=== PATIENT | male | born 1965 | race Caucasian/White ===

== ENCOUNTER → 2020-12-10 00:51 | Outpatient (CLI) | payer OTHER, SELFPAY ==
[2020-12-10 22:45] LABS: SARS-CoV-2 RNA PCR Negative
== END ==
PROVIDERS: PCP Family Medicine Adolescent Medicine; Visit Provider Internal Medicine Gastroenterology
DX: Z01.812 Encounter for preprocedural laboratory examination (principal); Z20.822 Contact with and (suspected) exposure to COVID-19
CPT/HCPCS: C9803; U0003; U0005

== ENCOUNTER 2020-12-13 01:44 | Day surgery (SDC) | payer OTHER, SELFPAY ==
[2020-12-05 13:59] VITALS: BMI 24.7
[2020-12-13 11:11] VITALS: BP 142/79; PULSE 93; RESP 16; TEMP 36.2; O2SAT 100
[2020-12-13] MEDS: LACTATED RINGERS 1,000 ML 150 ML IV CONT (11:15)
--- NOTE | 2020-12-13 11:48 | WPDANESEPPF ---
Anes - Initial Pre Proc Eval Procedure: Operation Date: 12/13/20 12:00 Proposed Procedures p Colonoscopy - Олег Temple MD Date/Time: 12/13/20 11:48 Surgeon: Олег Temple MD Pre Op Diagnosis: positive fit test R19.5 Patient Data Age: 55 Gender: M Height: 1.85 m Weight: 83.7 kg Last Vital Signs Temp 97.2 F L 12/13/20 11:11 Pulse 93 12/13/20 11:11 Resp 16 12/13/20 11:11 BP 142/79 H 12/13/20 11:11 Pulse Ox 100 12/13/20 11:11 Allergies Allergy/AdvReac Type Severity Reaction Status Date / Time Penicillins Allergy Mild Unknown Verified 12/13/20 11:09 Home Medications Medication Instructions Recorded Confirmed Type azathioprine [Imuran] 150 mg PO DAILY 12/05/20 12/05/20 History calcium carbonate-vitamin D3 500 cap PO DAILY 12/05/20 12/05/20 History [Calcium With Vitamin D3] ferrous sulfate [FeroSul] 325 mg PO DAILY 12/05/20 12/05/20 History folic acid 1 mg PO DAILY 12/05/20 12/05/20 History multivit with min-folic acid 1 tablet PO DAILY 12/05/20 12/13/20 History [Adult One Daily Multivitamin] Patient hx anesthesia problems: none Family hx anesthesia problems: none PMFSH Past Medical History Medical History (Updated 12/13/20 @ 11:43 by Rikki Alaniz MD) Anemia Crohn's disease Social History Social History Smoking status: Never smoker Alcohol intake: never Substance use type: does not use Living arrangements: with family Spiritual care concerns: No Anes - Eval Final PreProcedure Day of Procedure 12/13/20 11:48 Patient weight: normal Heart: regular rate and rhythm Lungs: clear to auscultation Airway: Mallampati scale class II Neurological: alert and oriented Last oral intake: >/= 8 hours ASA classification: II Emergent: no Anesthetic plan: proceed Anesthesia type and monitoring: general GIVS and standard monitoring Informed Consent: The patient's anesthetic plan and its attendant risks and benefits were discussed with the patient/family/POA. Questions were solicited and answers provided to the satisfaction of the patient/family/POA.
--- NOTE | 2020-12-13 11:55 | WPDGICN ---
Assessment and Plan Assessment and plan (1) Crohn's disease: Code(s): K50.90 - Crohn's disease, unspecified, without complications Status: Acute Assessment and Plan: Patient with known history of Crohn's disease. Previous endoscopy revealed rectal stricture as well. Patient currently maintained on Imuran 150mg p.o. daily. Plan is for evaluation at this time to assess status of his colonic Crohn's disease. (2) ASCHA (iron deficiency anemia): Code(s): D50.9 - Iron deficiency anemia, unspecified Status: Acute Assessment and Plan: Patient recently identified to have iron deficiency anemia. Stool Hemoccult was found to be positive. Plan to evaluate at the time of endoscopy. Iron replacement is encouraged in close monitoring of CBC. Pending results of colonoscopy we may need to consider EGD if no specific pathology identified. GI Consult Note Consult date/time: 12/13/20 11:55 HPI: Renaldo Leyva is a 55 year old male presents for colonoscopy. Recently found to have iron deficiency anemia. Hemoccult-positive stools. Patient's history is significant he was doing diagnosed with Crohn's disease in 2005. He has recently been treated with Imuran. Initial trial of mesalamine was initiated but he was found to be intolerant of mesalamine and colitis actually worsened on this medication. He did require brief trial of prednisone for some time initially. Colonoscopy in 2014 revealed a web-like stricture in the rectum. This had benign histology. patient reports that his current bowel habits are essentially normal. He denies any blood in his stools. Stool Hemoccult was found to be positive but stools do grossly appear normal. He presents today for follow-up exam. Review of Systems Review of Systems: All systems reviewed & are unremarkable except as noted in HPI and below PMFSH Past Medical History Medical History (Updated 12/13/20 @ 11:58 by Олег Temple MD) Anemia Crohn's disease Social History Social History Smoking status: Never smoker Alcohol intake: never Substance use type: does not use Living arrangements: with family Spiritual care concerns: No Meds Home Medications and Allergies Home Medications Medication Instructions Recorded Confirmed Type azathioprine [Imuran] 150 mg PO DAILY 12/05/20 12/05/20 History calcium carbonate-vitamin D3 500 cap PO DAILY 12/05/20 12/05/20 History [Calcium With Vitamin D3] ferrous sulfate [FeroSul] 325 mg PO DAILY 12/05/20 12/05/20 History folic acid 1 mg PO DAILY 12/05/20 12/05/20 History multivit with min-folic acid 1 tablet PO DAILY 12/05/20 12/13/20 History [Adult One Daily Multivitamin] Allergies Allergy/AdvReac Type Severity Reaction Status Date / Time Penicillins Allergy Mild Unknown Verified 12/13/20 11:09 Vital Signs Vital Signs - 24 hr 12/13/20 11:11 Temperature 97.2 F L Pulse Rate 93 Respiratory Rate 16 Blood Pressure 142/79 H Pulse Oximetry 100 Exam Narrative: Physical exam reveals patient be alert. Vital signs stable. HEENT exam unremarkable. Patient is anicteric. Lungs are clear to auscultation and percussion. Heart is without murmur or extra sounds. Abdominal exam bowel sounds are present soft nontender with no organomegaly. Digital external rectal exam is normal.
[2020-12-13 12:37] VITALS: BP 82/49; PULSE 75; RESP 17; O2SAT 94
[2020-12-13 12:47] VITALS: BP 102/69; PULSE 79; RESP 15; O2SAT 100
[2020-12-13 12:57] VITALS: BP 106/68; PULSE 79; RESP 17; O2SAT 100
[2020-12-13 13:22] LABS: Basophils Absolute Auto 0.1 K/mm3 (0.0-0.1); Basophils Percent Auto 1.2 % (0.2-1.2); Eosinophils Absolute Auto 0.2 K/mm3 (0-0.3); Eosinophils Percent Auto 3.2 % (0-4.4); Hematocrit 28.6 % (42.0-52.0); Immature Granulocyte Absolute 0.02 K/mm3 (0.00-0.031); Immature Granulocyte Percent A 0.4 % (0-0.5); Lymphocytes Percent Auto 16.2 % (18.3-44.2); Mean Corpuscular HGB Conc 31.5 g/dl (32-36); Mean Corpuscular Hemoglobin 25.4 pg (26-34); Mean Corpuscular Volume 80.6 fl (80-100); Mean Platelet Volume 9.6 fl (7.4-10.4); Monocytes Absolute Auto 0.6 K/mm3 (0.1-0.6); Neutrophils Absolute Auto 3.3 K/mm3 (1.3-6.7); Platelet Count Result 469 k/mm3 (150-375); Red Blood Count 3.55 M/mm3 (4.6-6.20); Red Cell Distribution Width 19.4 % (11.5-14.5); White Blood Count 4.9 K/mm3 (4.5-10.0)
== END 2020-12-13 13:25 | disposition home or self-care (01) ==
PROVIDERS: PCP Family Medicine Adolescent Medicine; Visit Provider Internal Medicine Gastroenterology
PROC: 0DJD8ZZ Inspection of Lower Intestinal Tract, Via Natural or Artificial Opening Endoscopic (ICD-10-PCS; CPT 45378; principal; 2020-12-13 12:00)
DX: D50.0 Iron deficiency anemia secondary to blood loss (chronic) (principal); R19.7 Diarrhea, unspecified; K50.90 Crohn's disease, unspecified, without complications; K63.5 Polyp of colon; K56.699 Other intestinal obstruction unspecified as to partial versus complete obstruction; K62.4 Stenosis of anus and rectum; K64.8 Other hemorrhoids
CPT/HCPCS: 45385; 45380; 36415; 85025; 88305; J2704; J7120

== ENCOUNTER 2021-03-15 09:42 | Outpatient (CLI) | payer OTHER, SELFPAY ==
--- NOTE | ~2021-03-15 | XR_ITS ---
EXAMINATION: XR_ENEMABAC_CR EXAM DATE: 03/15/2021 11:38 INDICATION: Incomplete colonoscopy. Anemia, sizable colonic polypoid mass identified on colonoscopy. History of inflammatory bowel disease. TECHNIQUE: Barium enema performed through tube inserted for the procedure. Barium air contrast enema was performed. Procedure was started in horizontal position, and attempts to do routine exam and put the table vertical unsuccessfully due to what was most likely patient demonstrating orthostatic hypo tension. Table was raised about 40 degrees and patient stated he felt dizzy and briefly unable to ans wer questions. Table was then returned to horizontal position and blood pressure was obtained at 90/4 0. Several minutes later blood pressure was 129/70 which patient stated was more normal for him. Afte r the procedure he was able to sit up on the table and ambulated to the bathroom without feeling dizz y. Dose reduction digital pulsed fluoroscopy was used at 4 frames per second with DAP 57 Gycm2, and a total number of 112 images for the exam. Fluoroscopy time of 0.5 minutes was used. Correlation was made with CT abdomen pelvis 2014. FINDINGS: The colon had diffuse absence of expected haustral folds. Region of mucosal abnormality al cesar the antimesenteric side of the descending colon with additional polypoid appearing filling defect confirmed on some of the images, has been indicated. This mass measures about 5 cm. Distal to this i n the transverse colon there is focal region of narrowing, which did not appear to have shouldering t o suggest underlying circumferential cancer. Contrast reflux into the terminal ileum, which demonstrated expected ileal fold pattern. Unusual kaitlynn nyla in that the cecum appeared to transition directly into the terminal ileum without expected cecal base anatomy, ileocecal valve appearance. IMPRESSION: 1. Polypoid descending colonic mass. 2. Transverse colonic narrowing without shouldering suspected. 3. Absent colonic haustral pattern consistent with inflammatory bowel disease. 4. Limited exam, patient became orthostatic during procedure. Reviewed, dictated and finalized at location A. E[employer] TENDER HELPER
== END 2021-03-15 09:43 | disposition home or self-care (01) ==
PROVIDERS: PCP Family Medicine Adolescent Medicine; Visit Provider Internal Medicine Gastroenterology
DX: D37.4 Neoplasm of uncertain behavior of colon (principal); K52.9 Noninfective gastroenteritis and colitis, unspecified
CPT/HCPCS: 74280

== ENCOUNTER 2023-05-21 09:08 | Inpatient (IN) | payer OTHER, SELFPAY ==
--- NOTE | ~2023-05-21 | CT_ITS ---
EXAMINATION: CT abdomen pelvis wo con DATE: 05/21/2023 10:00 INDICATION: Possible obstruction with decreased output in the ostomy bag. TECHNIQUE: Computed tomography (CT) of the abdomen and pelvis was performed without intravenous contr ast. Automated exposure control and iterative reconstruction technique were employed. The dose-length product was 398.86 mGy-cm. COMPARISON: 05/31/2014 FINDINGS: Mild dependent atelectasis in both lower lobes. Heart size is normal. No pericardial or pleural effusion. Small sliding-type hiatal hernia. A few sma ll gallstones in the dependent aspect of the normal-appearing gallbladder. Subtle 2.9 x 2.1 cm indete rminate mass at the dome of the liver. Small spleen. Pancreas and bilateral adrenal glands are normal . Bilateral nonobstructing nephrolithiasis with 4 stones in the right kidney the largest at the upper pole measuring 4 mm and a couple T2-3 millimeters stones at a lower pole calyx of the left kidney. B ladder is normal. Prostatomegaly. Postoperative change of prior right inguinal hernia repair. Status post colectomy with right right-sided and ileostomy. There is fluid scattered throughout the small kristin wel which measures up to maximal diameter 4.1 cm immediately proximal to the ostomy where the bowel i s decompressed. No free intraperitoneal gas or fluid. No pathologically enlarged abdominal or pelvic lymphadenopathy. Mild S-shaped curvature of the thoracolumbar spine with mild spondylosis. There is c hronic appearing mild right anterior wedging at T11, minimal at T10 and T12. IMPRESSION: 1. Fluid-filled small bowel measuring up to 4.1 cm diameter with transition point at a right abdomina l and ileostomy which could be due to ileus or early/partial small bowel obstruction. 2. Nonobstructing bilateral nephrolithiasis. 3. Small sliding-type hiatal hernia. Reviewed, dictated and finalized at location A. GHTSMAN IMPRESSION: 1. Fluid-filled small bowel measuring up to 4.1 cm diameter with transition poi nt at a right abdominal and ileostomy which could be due to ileus or early/part ial small bowel obstruction. 2. Nonobstructing bilateral nephrolithiasis. 3. Small sliding-type hiatal hernia.
--- NOTE | ~2023-05-21 | XR_ITS ---
EXAMINATION: XR abdomen gastric tube insert DATE: 05/21/2023 11:29 INDICATION: Status post nasogastric tube placement TECHNIQUE: A supine view of the abdomen and lower chest was obtained for evaluation of feeding tube placement. COMPARISON: CT abdomen and pelvis dated 05/21/2023 FINDINGS: Nasogastric tube tip in proximal side port in the body of the stomach. No dilated loops of gas-filled bowel in the visualized upper abdomen. Lung bases are clear. Heart size is normal. IMPRESSION: 1. Nasogastric tube in expected position in the stomach. Reviewed, dictated and finalized at location A. [facility] [employer] WORK[facility]
[2023-05-21 09:20] VITALS: BP 137/74; PULSE 91; RESP 18; TEMP 36.7; O2SAT 97
[2023-05-21 09:56] LABS: Basophils Absolute Auto 0.1 K/mm3 (0.0-0.1); Basophils Percent Auto 0.4 % (0.2-1.2); Eosinophils Percent Auto 0.1 % (0-4.4); Hematocrit 48.5 % (42.0-52.0); Hemoglobin 16.4 g/dL (14.0-18.0); Immature Granulocyte Absolute 0.07 K/mm3 (0.00-0.031); Immature Granulocyte Percent A 0.4 % (0-0.5); Lymphocytes Absolute Auto 1.08 K/mm3 (0.9-3.2); Lymphocytes Percent Auto 6.5 % (18.3-44.2); Mean Corpuscular HGB Conc 33.8 g/dl (32-36); Mean Corpuscular Hemoglobin 32.3 pg (26-34); Mean Corpuscular Volume 95.5 fl (80-100); Mean Platelet Volume 10.3 fl (7.4-10.4); Monocytes Absolute Auto 0.5 K/mm3 (0.1-0.6); Neutrophils Absolute Auto 14.9 K/mm3 (1.3-6.7); Neutrophils Percent Auto 89.6 % (45.5-73.1); Platelet Count Result 301 k/mm3 (150-375); Red Blood Count 5.08 M/mm3 (4.6-6.20); Red Cell Distribution Width 13.6 % (11.5-14.5); White Blood Count 16.6 K/mm3 (4.5-10.0)
--- NOTE | 2023-05-21 10:10 | ED.GENADULT ---
HPI - General Adult General Chief complaint: Unspecified Stated complaint: blocked ostomy Time Seen by Provider: 05/21/23 09:47 History of Present Illness HPI narrative: 58-year-old male presenting to the emergency department for evaluation of decreased ostomy output. Patient has a ostomy due to history of colon cancer in August of 2021, he had the ostomy placed at [facility]. Patient states that he does take it daily Imodium to help with ostomy output. Patient did take his Imodium yesterday. Patient states that last night he noticed he had decreased ostomy output. Patient reports over the course of the night he did develop some nausea without vomiting. Patient did have some associated heartburn. At time of examination patient denies any current pain or nausea. Related Data Home Medications Medication Instructions Recorded Confirmed multivitamin with minerals-folic 1 tablet PO DAILY 12/05/20 05/21/23 acid 0.4 mg tablet (Adult One Daily Multivitamin) calcium carbonate-vitamin D3 500 600 cap PO DAILY 05/10/21 05/21/23 mg (1,250 mg)-50 unit capsule loperamide 2 mg capsule 2 mg PO BID PRN diarrhea 02/21/22 05/21/23 psyllium husk (with sugar) 3 1 tsp PO BID 02/21/22 05/21/23 gram/7 gram oral powder (Daily Fiber (psyllium-sucrose)) Allergies Allergy/AdvReac Type Severity Reaction Status Date / Time Penicillins Allergy Mild Unknown Verified 05/21/23 09:48 iohexol Allergy Anaphylaxis Verified 05/21/23 09:48 [From contrast - CT, X-RAY] Review of Systems Review of Systems: All systems reviewed & are unremarkable except as noted in HPI and below PMFSH Past Medical History Medical History Crohn's disease History of colon cancer (08/2021) IBD (inflammatory bowel disease) Iron deficiency anemia Villous adenoma of colon Surgical History Surgical History History of inguinal hernia repair (2008) right History of total colectomy (08/2021) Social History Social History Smoking status: Never smoker Alcohol intake: never Substance use type: does not use Do You Feel Safe in your Home?: Yes Lack of Transportation: No Lack of Food: Never True Current Housing: I Do Not Have Housing Concerned About Future Housing: No Difficulty Paying Gas/Electric Bills: No Difficulty Paying for Meds: No Currently Unemployed: No Education: Bachelor's Degree Difficulty w/ Childcare or Family Care: No Living arrangements: with family Spiritual care concerns: No Exam Narrative: APPEARANCE: Well appearing, no pain, no distress, well-nourished. HEAD: normocephalic, atraumatic. EYES: PERRLA/EOMI, conjunctivae clear. NOSE: Normal no drainage EARS:TMS clear with good light reflex. THROAT: Pharynx clear, no exudate. NECK: Supple. No adenopathy, no masses. RESPIRATORY: Airway patent, respirations nonlabored. Clear to auscultation bilaterally, no rales, rhonchi, wheezing. CARDIOVASCULAR: Regular rate and rhythm without murmurs rubs or gallops. ABDOMINAL: Soft, nondistended, normal bowel sounds, normal-appearing ostomy MUSCULOSKELETAL: Moves all extremities. Strength/ROM intact, No edema, No calf tenderness. NEURO: Alert. Cranial nerves II through XII intact. Grossly intact SKIN: Warm, dry. Normal Color Course Course Emergency Course: 58-year-old gentleman with history ileostomy secondary to colon cancer. CT does show concern for ileus or early bowel obstruction. I discussed admission at our institution versus transfer to [facility] were he had his initial surgery and patient prefers transfer to [facility]. Colorectal surgery at [facility] excepted the patient today did not think a bed would be available any time soon. I discussed the case with our surgeon and Dr. Goodrich was willing to see the patient as consult. Patient was accepted by the [facility]
[2023-05-21 10:13] LABS: Alanine Aminotransferase 35 U/L (6-50); Albumin Level 4.5 g/dL (3.5-5.1); Alkaline Phosphatase 106 U/L (38-126); Anion Gap 9 mmol/L (8-16); Aspartate Amino Transferase 35 U/L (17-59); Blood Urea Nitrogen 15 mg/dL (9-20); Calcium 9.7 mg/dL (8.4-10.2); Carbon Dioxide 26 mmol/L (22-30); Chloride 102 mmol/L (98-107); Estimated CRCL calculation 111 ml/min; Estimated Glomerular Filt Rate > 60; Glucose 152 mg/dL (65-110); Lipase 35 U/L (23-300); Potassium 3.5 mmol/L (3.4-5.0); Sodium 137 mmol/L (137-145)
[2023-05-21] MEDS: SODIUM CHLORIDE 0.9% IV 1,000 ML 999 ML IV CONT ×2 (10:41→11:43)
[2023-05-21] MEDS: PANTOPRAZOLE SODIUM IV 40 MG VIAL IV PUSH (10:41)
[2023-05-21 11:11] VITALS: TEMP 36.7
[2023-05-21 11:18] LABS: Lactic Acid Reflex 2.5 mmol/L (0.7-2.0)
[2023-05-21 11:34] VITALS: BP 130/93; PULSE 93; RESP 16; O2SAT 98
[2023-05-21 11:37] LABS: Influenza A QL RT-PCR Negative (Negative); Influenza B QL RT-PCR Negative (Negative); RSV RNA, RT-PCR Negative (Negative); SARS-CoV-2 RNA PCR Negative (Negative)
[2023-05-21 11:52] LABS: Appearance Urine Clear (Clear); Bilirubin Urine Negative (Negative); Blood Urine Negative (Negative); Color Urine Yellow (Yellow); Glucose Urine UA Negative (Negative); Ketones Urine Negative (Negative); Leukocyte Esterase Ur Negative LEU/UL (Negative); Nitrate Urine Negative (Negative); Protein Urine Negative (Negative); Specific Grav Ur 1.017 (1.001-1.035); Urobilinogen Urine 0.2 mg/dL (<2.0); pH Urine 6.5 (5.0-9.0)
[2023-05-21 11:55] LABS: Add Urine Microscopic? NO
--- NOTE | 2023-05-21 13:09 | PM.IMHP ---
H&P: HPI History of Present Illness Date/Time: 05/21/23 13:09 Chief Complaint: Decreased Output from Ostomy Narrative: 58 y/o M presents here with decreased output from his ostomy with PMH of Crohn's, colon cancer s/p total colectomy, anemia, and R inguinal hernia repair. Patient reports decreased output from his colostomy starting yesterday evening. Patient had total colectomy/ostomy placed in August of 2021 secondary to colon cancer at [facility]. Takes Imodium once daily for to help with ostomy output (previously too thin/too much) and Metamucil fiber, last doses yesterday. Started having associated nausea without vomiting, subjective fever/chills, and GERD symptoms (burning in his throat) that began this morning. No abdominal pain. Currently experiencing moderate achiness to muscles of abdomen/lower back secondary to emesis and dry heaves. No recent illnesses or sick contacts. Initial VS at presentation:98.1 F, HR 91, RR 18, 137/74, 97% on RA. ED workup showed Leukocytosis with WBC of 16.6, no anemia, chemistries unremarkable, glucose 152, lactic acid 2.5, viral PCR negative, and UA not indicative of UTI. CT abd/pelvis showed fluid-filled small bowel measuring up to 4.1 cm diameter with transition point at a right abdominal and ileostomy which could be due to ileus or early/partial small bowel obstruction. Nonobstructing bilateral nephrolithiasis. Small sliding-type hiatal hernia. NG then placed and confirmed with XR. Review of Systems Review of Systems: All systems reviewed & are unremarkable except as noted in HPI and below [facility] Past Medical History Medical History (Updated 05/21/23 @ 13:35 by Judy Corrigan APRN) Crohn's disease History of colon cancer (08/2021) IBD (inflammatory bowel disease) Iron deficiency anemia Villous adenoma of colon Surgical History Surgical History (Updated 02/21/22 @ 14:35 by Eldon López MD) History of inguinal hernia repair (2008) right History of total colectomy (08/2021) Social History Social History Smoking status: Never smoker Alcohol intake: never Substance use type: does not use Do You Feel Safe in your Home?: Yes Lack of Transportation: No Lack of Food: Never True Current Housing: I Do Not Have Housing Concerned About Future Housing: No Difficulty Paying Gas/Electric Bills: No Difficulty Paying for Meds: No Currently Unemployed: No Education: Bachelor's Degree Difficulty w/ Childcare or Family Care: No Living arrangements: with family Spiritual care concerns: No Meds Home Medications and Allergies Home Medications Medication Instructions Recorded Confirmed Type multivitamin with minerals-folic 1 tablet PO DAILY 12/05/20 05/21/23 History acid 0.4 mg tablet (Adult One Daily Multivitamin) calcium carbonate-vitamin D3 500 600 cap PO DAILY 05/10/21 05/21/23 History mg (1,250 mg)-50 unit capsule loperamide 2 mg capsule 2 mg PO BID PRN diarrhea 02/21/22 05/21/23 History psyllium husk (with sugar) 3 1 tsp PO BID 02/21/22 05/21/23 History gram/7 gram oral powder (Daily Fiber (psyllium-sucrose)) folic acid 1 mg tablet 0.5 mg PO DAILY #30 tabs 06/05/22 05/21/23 Rx Allergies Allergy/AdvReac Type Severity Reaction Status Date / Time Penicillins Allergy Mild Unknown Verified 05/21/23 09:48 iohexol Allergy Anaphylaxis Verified 05/21/23 09:48 [From contrast - CT, X-RAY] Vital Signs Vital Signs - 24 hr 05/21/23 09:20 05/21/23 11:11 05/21/23 11:34 Temperature 98.1 F 98.0 F Pulse Rate 91 93 Respiratory Rate 18 16 Blood Pressure 137/74 130/93 H Pulse Oximetry 97 98 Oxygen Delivery Room Air Exam Const: General: comfortable and no acute distress Other: ill appearing, , male HENMT: Face/Nose/Sinus: Normal nares present Mouth: Yes dry mucous membranes Eyes: General: appearance normal, both eye
[2023-05-21] MEDS: SODIUM CHLORIDE 0.9% IV 1,000 ML 125 ML IV CONT (13:27)
[2023-05-21 13:45] LABS: Lactic Acid Reflex 2.2 mmol/L (0.7-2.0)
[2023-05-21 14:07] LABS: Reflex Lactic Acid Yes or No Add Lactic
[2023-05-21] MEDS: metroNIDAZOLE 500 MG/ISO 100ML 500 MG/100 ML BAG 100 MG IVPB ×2 (14:18→21:30)
[2023-05-21 14:20] VITALS: BP 128/75; PULSE 111
[2023-05-21 14:54] VITALS: BMI 24.4
--- NOTE | 2023-05-21 15:00 | ADMGEN ---
This patient, Renaldo Leyva, was admitted to [facility] Surg Room 314-01 at 1435. Patient/family oriented to hospital policies and general routines including ID bracelet, bed and alarms, visiting hours, pain management, procedures, bathroom and other care routines, personal items, smoking policy, room service/diet, and visiting hours. Information on how to activate the Rapid Response Team has been discussed. Patient/Family are encouraged to report perceived risks to care and to ask questions if they do not understand what they are told or what they should do.
[2023-05-21 15:11] VITALS: BP 132/86; PULSE 109; RESP 18; TEMP 36.7; O2SAT 95
[2023-05-21 15:30] LABS: Lactic Acid 2.6 mmol/L (0.7-2.0)
--- NOTE | 2023-05-21 16:53 | PM.CNGS ---
Assessment and Plan Assessment and plan (1) Small bowel obstruction, partial: Code(s): K56.600 - Partial intestinal obstruction, unspecified as to cause Status: Acute Assessment and Plan: CT shows small-bowel obstruction with transition point at the ileostomy. He is not having any abdominal pain and his abdominal exam is benign. Continue NG tube decompression, NPO, and IV fluids. May consider a water-soluble small bowel follow-through tomorrow morning. Repeat labs in a.m.. (2) Presence of ileostomy: Code(s): Z93.2 - Ileostomy status Status: Acute (3) Sepsis: Qualifiers: Sepsis type: sepsis due to unspecified organism Sepsis acute organ dysfunction status: unspecified Qualified Code(s): A41.9 - Sepsis, unspecified organism Code(s): A41.9 - Sepsis, unspecified organism Status: Acute Assessment and Plan: Leukocytosis and elevated lactic acid on admission. WBC 16 and lactic acid 2.5. He was given IV fluids and started on broad-spectrum IV antibiotics. Blood cx pending. Plan I have discussed the patient's case and plan of care with Dr. Goodrich. History of Present Illness Consult details Consult date: 05/21/23 Reason for consult: other (Small bowel obstruction) Requesting physician: Demond Gautam MD Narrative: This is a 56-year-old man with ileal and pancolonic Crohn's disease and colon cancer status post laparoscopic assisted total proctocolectomy with intersphincteric APR, ileal resection, and end ileostomy in 2021, who we have been asked to see in consultation for a small-bowel obstruction. The patient had a surgery in 2021 at [facility]. He follows with a surgeon at [facility] and has been on Imodium since his surgery. He was trying to wean off and is only taking this daily, where as he was taking it twice daily. He actually had a follow-up scheduled with his surgeon in 2 days. Yesterday, he noticed less output during the evening. He emptied his ostomy and got about half out of what he typically notices. At bedtime, he had no output and when he woke up around 4:00 a.m. he again had no output from the ileostomy. He then developed nausea and dry heaves. He denies really having any abdominal pain. Due to his low ostomy output, he presented to the ER for further evaluation. [place] [id number], lactic acid 2.5. CT scan of the abdomen and pelvis showed a fluid-filled small bowel measuring up to 4.1 cm diameter with transition point at the right abdominal and ileostomy which could be due to ileus or early/partial small bowel obstruction. Also noted was nonobstructing bilateral nephrolithiasis, small sliding-type hiatal hernia. The ER physician contacted [facility] as that is where the patient had a surgery and requested going. There were no beds available and he is being admitted to the hospitalist service. Our service is being consulted. He had an NG tube placed. He is seen on the medical floor and has about 300 cc out of his NG tube of liquid brown output. He feels less nauseous. Still has not had much out of his ostomy. He was started on broad-spectrum IV antibiotics, IV fluids, and analgesics. Review of Systems Review of Systems: All systems reviewed & are unremarkable except as noted in HPI and below PMFSH Past Medical History Medical History Crohn's disease History of colon cancer (08/2021) IBD (inflammatory bowel disease) Iron deficiency anemia Villous adenoma of colon Surgical History Surgical History History of inguinal hernia repair (2008) right History of total colectomy (08/2021) Social History Social History Smoking status: Never smoker Alcohol intake: never Substance use type: does not use Do You Feel Safe in your Home?: Yes Lack of Transporta
[2023-05-21] MEDS: LACTATED RINGERS 1,000 ML 100 ML IV CONT (17:17)
--- NOTE | 2023-05-21 19:25 | PC.NURSE ---
gave update to [facility], Amber MARTINES at [phone]
[2023-05-21 21:16] VITALS: BP 130/72; PULSE 83; RESP 18; TEMP 36.7; O2SAT 98
[2023-05-22] MEDS: LACTATED RINGERS 1,000 ML 100 ML IV CONT ×2 (05:09→20:24)
[2023-05-22] MEDS: metroNIDAZOLE 500 MG/ISO 100ML 500 MG/100 ML BAG 100 MG IVPB ×3 (06:12→20:24)
[2023-05-22 06:30] VITALS: BP 119/70; PULSE 96; RESP 18; TEMP 37.3; O2SAT 93
[2023-05-22 06:39] LABS: Basophils Absolute Auto 0.1 K/mm3 (0.0-0.1); Basophils Percent Auto 0.4 % (0.2-1.2); Eosinophils Absolute Auto 0.1 K/mm3 (0-0.3); Eosinophils Percent Auto 0.4 % (0-4.4); Hematocrit 44.3 % (42.0-52.0); Hemoglobin 15.2 g/dL (14.0-18.0); Immature Granulocyte Absolute 0.06 K/mm3 (0.00-0.031); Immature Granulocyte Percent A 0.4 % (0-0.5); Lymphocytes Absolute Auto 1.31 K/mm3 (0.9-3.2); Lymphocytes Percent Auto 9.3 % (18.3-44.2); Mean Corpuscular HGB Conc 34.3 g/dl (32-36); Mean Corpuscular Hemoglobin 32.1 pg (26-34); Mean Corpuscular Volume 93.7 fl (80-100); Mean Platelet Volume 10.4 fl (7.4-10.4); Monocytes Absolute Auto 1.4 K/mm3 (0.1-0.6); Monocytes Percent Auto 9.6 % (2.6-8.5); Neutrophils Absolute Auto 11.3 K/mm3 (1.3-6.7); Neutrophils Percent Auto 79.9 % (45.5-73.1); Platelet Count Result 273 k/mm3 (150-375); Red Blood Count 4.73 M/mm3 (4.6-6.20); Red Cell Distribution Width 13.7 % (11.5-14.5); White Blood Count 14.1 K/mm3 (4.5-10.0)
[2023-05-22 07:19] LABS: Lactic Acid Reflex 1.4 mmol/L (0.7-2.0)
[2023-05-22 08:27] LABS: Anion Gap 4 mmol/L (8-16); Blood Urea Nitrogen 14 mg/dL (9-20); Calcium 9.3 mg/dL (8.4-10.2); Carbon Dioxide 28 mmol/L (22-30); Chloride 106 mmol/L (98-107); Estimated CRCL calculation 98 ml/min; Estimated Glomerular Filt Rate > 60; Glucose 107 mg/dL (65-110); Potassium 3.5 mmol/L (3.4-5.0); Sodium 138 mmol/L (137-145)
[2023-05-22] MEDS: PANTOPRAZOLE SODIUM IV 40 MG VIAL IV PUSH (10:11)
[2023-05-22 11:07] LABS: Hemoglobin A1C 5.3 % (<5.7)
--- NOTE | 2023-05-22 12:07 | PM.PNGS ---
Progress Note: A&P Assessment and Plan (1) Small bowel obstruction, partial: Code(s): K56.600 - Partial intestinal obstruction, unspecified as to cause Status: Acute Assessment and Plan: resolving, exam benign, clamp NG and start clears, if no issues after a few hours ok to remove NG and ADAT Subjective Subjective Date/Time Seen: 05/22/23 12:07 Interval history: feels much better, ileostomy working, pain largely resolved Review of Systems Review of Systems: All systems reviewed & are unremarkable except as noted in HPI and below Exam Const: General: cooperative, comfortable and no acute distress Resp: Auscultation: clear to auscultation bilaterally Cardio: Rate: regular rate Rhythm: regular rhythm GI: Inspection: normal to inspection and non-distended GI Palp: No abdominal tenderness and Yes Soft to palpation Other: ileostomy - +fxn, viable Objective Data Vital Signs Vital Signs: Vital Signs - 24 hr 05/21/23 14:20 05/21/23 15:11 05/21/23 21:16 Temperature 36.7 C 36.7 C Pulse Rate 111 H 109 H 83 Respiratory Rate 18 18 Blood Pressure 128/75 132/86 130/72 Pulse Oximetry 95 98 Oxygen Delivery 05/21/23 20:00 05/22/23 06:30 Temperature 37.3 C Pulse Rate 96 Respiratory Rate 18 Blood Pressure 119/70 Pulse Oximetry 93 Oxygen Delivery Room Air Intake/Output Intake/Output: Intake & Output 05/19/23 05/20/23 05/21/23 05/22/23 23:59 23:59 23:59 23:59 Intake Total 2150 1100 Output Total 350 2050 Balance 1800 -950 Meds/Results Medications: Active Medications Generic Name Dose Route Start Last Admin Trade Name Freq PRN Reason Stop Dose Admin Acetaminophen 650 mg 05/21/23 15:26 Acetaminophen 325 Mg Tablet PO Q4H PRN Mild Pain (1-3) or Fever Hydrocodone Bitart/Acetaminophen 1 tab 05/21/23 15:26 Hydrocodone/Acetaminophen (*Crx) 5-325 Mg Tablet PO Q4H PRN Moderate Pain (4-6) Calcium Carbonate 500 mg 05/22/23 09:00 Calcium/Vitamin D 500 Mg Tablet PO DAILY MIESHA Folic Acid 0.5 mg 05/22/23 09:00 Folic Acid 1 Mg Tablet PO DAILY [facility] Ceftriaxone Sodium 1 gm in 50 mls @ 100 mls/hr 05/22/23 13:00 Rocephin 1 Gm/Ns 50 Ml IVPB Q24H MIESHA Metronidazole 500 mg in 100 mls @ 100 mls/hr 05/21/23 22:00 05/22/23 07:12 Flagyl 500 Mg/Iso Soln 100 Ml IVPB Infused Q8H MIESHA Infusion Lactated Ringer's 1,000 mls @ 100 mls/hr 05/21/23 18:30 05/22/23 05:09 Lr - Lactated Ringers Iv IV CONT 100 mls/hr .Q10H MIESHA Administration Morphine Sulfate 2 mg 05/21/23 15:26 Morphine Sulfate (*Crx) 2 Mg/Ml Inj IV PUSH Q4H PRN Pain Rated 7-10 Multivitamins/Calcium 1 tablet 05/22/23 09:00 Therapeutic Multivitamins/Minerals Tab (*Bkc) PO DAILY [facility] Ondansetron HCl 4 mg 05/21/23 15:26 Ondansetron Inj 4 Mg/2 Ml Vial IV PUSH Q6H PRN Nausea And Vomiting Pantoprazole Sodium 40 mg 05/22/23 09:00 05/22/23 10:11 Pantoprazole Sodium Iv 40 Mg Vial IV PUSH 40 mg QAM MIESHA Administration Radiology Results: ITS Impressions Abdomen/Pelvis CT 05/21/23 10:02 IMPRESSION: 1. Fluid-filled small bowel measuring up to 4.1 cm diameter with transition point at a right abdominal and ileostomy which could be due to ileus or early/partial small bowel obstruction. 2. Nonobstructing bilateral nephrolithiasis. 3. Small sliding-type hiatal hernia. Abdomen X-Ray 05/21/23 11:31 IMPRESSION: 1. Nasogastric tube in expected position in the stomach. Labs Labs: Laboratory Results - last 24 hr 05/21/23 05/21/23 05/22/23 13:21 14:58 06:09 WBC 14.1 H RBC 4.73 Hgb 15.2 Hct 44.3 MCV 93.7 MCH 32.1 MCHC 34.3 RDW 13.7 Plt Count 273 MPV 10.4 Immature Gran % (Auto) 0.4 Neut % (Auto) 79.9 H Lymph % (Auto) 9.3 L [place] % (Auto) 9.6 H Eos % (Auto) 0.4 Baso % (Auto) 0.4 Lymph # (Auto) 1.31 [place] # (Auto)
[2023-05-22 13:02] VITALS: O2SAT 94
[2023-05-22 14:00] VITALS: BP 120/84; PULSE 107; RESP 18; TEMP 36.5; O2SAT 95
--- NOTE | 2023-05-22 16:22 | PM.IMPN ---
Progress Note: A&P Assessment and Plan (1) Sepsis: Qualifiers: Sepsis type: sepsis due to unspecified organism Sepsis acute organ dysfunction status: unspecified Qualified Code(s): A41.9 - Sepsis, unspecified organism Code(s): A41.9 - Sepsis, unspecified organism Status: Acute Assessment and Plan: -Meets SIRS criteria: HR >90, WBC count >14 -Lactic Acid: 2.5 -> r2.2, repeat in AM -30 mL/kg = 2,500 - given 2L bolus with NS at 125 mL/hr -started on metronidazole and ceftriaxone -CT c/f partial SBO or early SBO - GenSurg to see. -blood cultures pending (2) Small bowel obstruction, partial: Code(s): K56.600 - Partial intestinal obstruction, unspecified as to cause Status: Acute Assessment and Plan: -CT abd/pelvis: 1. Fluid-filled small bowel measuring up to 4.1 cm diameter with transition point at a right abdominal and ileostomy which could be due to ileus or early/partial small bowel obstruction. 2. Nonobstructing bilateral nephrolithiasis. 3. Small sliding-type hiatal hernia. -NG placed, XR abd - nasogastric tube in expected position in the stomach. -NPO/bowel rest -accepted at [facility] by Renato KAUFMAN for colorectal surgery, no bed available. ED spoke with Kp KAUFMAN who is willing to see patient here. -given WBC of 16.6, subjective chills/fever, and lactic acid of 2.5 - patient started on ceftriaxone and metronidazole on 05/21. has PCN allergy. -GenSurg consulted, awaiting recs. -antiemetics PRN -pantoprazole 40 IVP QAM -continue IV hydration - NS 125 mL/hr -> LR 100 mL/hr. monitor for discontinuation daily. -hold home Imodium and Metamucil Per General surgery: resolving, exam benign, clamp NG and start clears, if no issues after a few hours ok to remove NG and ADAT (3) Presence of ileostomy: Code(s): Z93.2 - Ileostomy status Status: Acute Assessment and Plan: -follows with [facility] Colorectal Surgery - accepted at [facility], no bed availablity -monitor I&Os -see above Plan Home Meds/Chronic Conditions -OTC/ supplements: hold home multivitamin, folic acid, calcium/vitamin D3 Diet: NPO GI Prophylaxis: pantoprazole IVP DVT Prophylaxis: SCDs Lines: pIV Code Status: Full Code Time Spent With Patient Time with patient: 25 - 35 minutes Subjective Date/time seen: 05/22/23 16:22 Interval history: Seen and examined; wants to know when the NGT will come out. Review of Systems Review of Systems: All systems reviewed & are unremarkable except as noted in HPI and below Exam Const: General: comfortable and no acute distress Other: ill appearing, , male HENMT: Face/Nose/Sinus: Normal nares present Mouth: Yes dry mucous membranes Eyes: General: appearance normal, both eyes and all related structures Sclera: sclerae normal Pupils: Equal, round and reactive pupils present EOM: EOMs intact bilaterally Resp: Effort & Inspection: normal respiratory effort Auscultation: clear to auscultation bilaterally Cardio: Rate: tachycardic Rhythm: regular rhythm Other: S1-S2 present without murmur, rub, ectopy GI: Other: non-distended, normoactive BS in all quadrants, ostomy present with green/bilious output, thinned. Skin: General skin exam: no rashes or lesions noted Wounds: no wounds Other: mild pallor Neuro: Cranial nerves: Yes Equal, round and reactive pupils present Speech: normal speech Motor exam (neuro): 5/5 motor strength present throughout Sensory Exam: normal sensation Other: A/Ox4 Extrem: General: normal to inspection Psych: Mental Status: mental status grossly normal Affect: normal affect Other: Good insight and judgment, pleasant. Objective Data Vital Signs Vital Signs: Vital Signs - 24 hr 05/21/23 21:16 05/21/23 20:00 05/22/23 06:30 Temperature 98.1 F 99.2 F Pulse Rate 83 96 Respiratory Rate 18 18 Blood Pressure 130/72 119/70 Pulse Oximetry 98 93 Oxygen Delivery Room
[2023-05-22 20:00] VITALS: PULSE 107; RESP 18; O2SAT 95
[2023-05-22 21:46] VITALS: BP 119/70; PULSE 92; RESP 18; TEMP 37.1; O2SAT 96
[2023-05-23] MEDS: LACTATED RINGERS 1,000 ML 100 ML IV CONT (05:15)
[2023-05-23] MEDS: metroNIDAZOLE 500 MG/ISO 100ML 500 MG/100 ML BAG 100 MG IVPB (05:15)
[2023-05-23 05:53] VITALS: BP 113/76; PULSE 84; RESP 18; TEMP 37.1; O2SAT 93
[2023-05-23 06:55] LABS: Basophils Absolute Auto 0.1 K/mm3 (0.0-0.1); Basophils Percent Auto 0.8 % (0.2-1.2); Eosinophils Absolute Auto 0.3 K/mm3 (0-0.3); Eosinophils Percent Auto 2.4 % (0-4.4); Hematocrit 43.3 % (42.0-52.0); Hemoglobin 14.9 g/dL (14.0-18.0); Immature Granulocyte Absolute 0.03 K/mm3 (0.00-0.031); Immature Granulocyte Percent A 0.3 % (0-0.5); Lymphocytes Absolute Auto 1.83 K/mm3 (0.9-3.2); Lymphocytes Percent Auto 16.5 % (18.3-44.2); Mean Corpuscular HGB Conc 34.4 g/dl (32-36); Mean Corpuscular Hemoglobin 32.2 pg (26-34); Mean Corpuscular Volume 93.5 fl (80-100); Mean Platelet Volume 10.3 fl (7.4-10.4); Monocytes Percent Auto 9.4 % (2.6-8.5); Neutrophils Absolute Auto 7.9 K/mm3 (1.3-6.7); Neutrophils Percent Auto 70.6 % (45.5-73.1); Platelet Count Result 253 k/mm3 (150-375); Red Blood Count 4.63 M/mm3 (4.6-6.20); Red Cell Distribution Width 13.7 % (11.5-14.5); White Blood Count 11.1 K/mm3 (4.5-10.0)
[2023-05-23 07:02] LABS: Alanine Aminotransferase 30 U/L (6-50); Albumin Level 3.3 g/dL (3.5-5.1); Alkaline Phosphatase 78 U/L (38-126); Anion Gap 4 mmol/L (8-16); Aspartate Amino Transferase 30 U/L (17-59); Blood Urea Nitrogen 14 mg/dL (9-20); Calcium 8.9 mg/dL (8.4-10.2); Carbon Dioxide 28 mmol/L (22-30); Chloride 105 mmol/L (98-107); Estimated CRCL calculation 111 ml/min; Estimated Glomerular Filt Rate > 60; Glucose 101 mg/dL (65-110); Potassium 3.5 mmol/L (3.4-5.0); Sodium 137 mmol/L (137-145)
--- NOTE | 2023-05-23 09:49 | PM.IMPN ---
Progress Note: A&P Assessment and Plan (1) Sepsis: Qualifiers: Sepsis acute organ dysfunction status: unspecified Sepsis type: sepsis due to unspecified organism Qualified Code(s): A41.9 - Sepsis, unspecified organism Code(s): A41.9 - Sepsis, unspecified organism Status: Acute Assessment and Plan: -Meets SIRS criteria: HR >90, WBC count >14 -Lactic Acid: 2.5 -> r2.2, repeat in AM -30 mL/kg = 2,500 - given 2L bolus with NS at 125 mL/hr -started on metronidazole and ceftriaxone -CT c/f partial SBO or early SBO - GenSurg to see. -blood cultures pending (2) Small bowel obstruction, partial: Code(s): K56.600 - Partial intestinal obstruction, unspecified as to cause Status: Acute Assessment and Plan: -CT abd/pelvis: 1. Fluid-filled small bowel measuring up to 4.1 cm diameter with transition point at a right abdominal and ileostomy which could be due to ileus or early/partial small bowel obstruction. 2. Nonobstructing bilateral nephrolithiasis. 3. Small sliding-type hiatal hernia. -NG placed, XR abd - nasogastric tube in expected position in the stomach. -NPO/bowel rest -accepted at [facility] by Renato KAUFMAN for colorectal surgery, no bed available. ED spoke with Kp KAUFMAN who is willing to see patient here. -given WBC of 16.6, subjective chills/fever, and lactic acid of 2.5 - patient started on ceftriaxone and metronidazole on 05/21. has PCN allergy. -GenSurg consulted, awaiting recs. -antiemetics PRN -pantoprazole 40 IVP QAM -continue IV hydration - NS 125 mL/hr -> LR 100 mL/hr. monitor for discontinuation daily. -hold home Imodium and Metamucil Per General surgery: resolving, exam benign, clamp NG and start clears, if no issues after a few hours ok to remove NG and ADAT (3) Presence of ileostomy: Code(s): Z93.2 - Ileostomy status Status: Acute Assessment and Plan: -follows with [facility] Colorectal Surgery - accepted at [facility], no bed availablity -monitor I&Os -see above Plan Home Meds/Chronic Conditions -OTC/ supplements: hold home multivitamin, folic acid, calcium/vitamin D3 Diet: NPO GI Prophylaxis: pantoprazole IVP DVT Prophylaxis: SCDs Lines: pIV Code Status: Full Code Time Spent With Patient Time with patient: 25 - 35 minutes Subjective Date/time seen: 05/23/23 09:49 Interval history: Seen and examined; wants to know when the NGT will come out. Review of Systems Review of Systems: All systems reviewed & are unremarkable except as noted in HPI and below Exam Const: General: comfortable and no acute distress Other: ill appearing, , male HENMT: Face/Nose/Sinus: Normal nares present Mouth: Yes dry mucous membranes Eyes: General: appearance normal, both eyes and all related structures Sclera: sclerae normal Pupils: Equal, round and reactive pupils present EOM: EOMs intact bilaterally Resp: Effort & Inspection: normal respiratory effort Auscultation: clear to auscultation bilaterally Cardio: Rate: tachycardic Rhythm: regular rhythm Other: S1-S2 present without murmur, rub, ectopy GI: Other: non-distended, normoactive BS in all quadrants, ostomy present with green/bilious output, thinned. Skin: General skin exam: no rashes or lesions noted Wounds: no wounds Other: mild pallor Neuro: Cranial nerves: Yes Equal, round and reactive pupils present Speech: normal speech Motor exam (neuro): 5/5 motor strength present throughout Sensory Exam: normal sensation Other: A/Ox4 Extrem: General: normal to inspection Psych: Mental Status: mental status grossly normal Affect: normal affect Other: Good insight and judgment, pleasant. Objective Data Vital Signs Vital Signs: Vital Signs - 24 hr 05/22/23 13:02 05/22/23 14:00 05/22/23 20:00 Temperature 97.7 F Pulse Rate 107 H 107 H Respiratory Rate 18 18 Blood Pressure 120/84 Pulse Oximetry 94 95 95 Oxygen Delivery Room Air
[2023-05-23] MEDS: PANTOPRAZOLE SODIUM IV 40 MG VIAL IV PUSH (09:56)
--- NOTE | 2023-05-23 13:11 | PM.PNGS ---
Progress Note: A&P Assessment and Plan (1) Small bowel obstruction, partial: Code(s): K56.600 - Partial intestinal obstruction, unspecified as to cause Status: Acute Assessment and Plan: resolved, ADAT, home if giancarlo diet Subjective Subjective Date/Time Seen: 05/23/23 13:11 Interval history: feels good, giancarlo full liquids, +bowel fxn Review of Systems Review of Systems: All systems reviewed & are unremarkable except as noted in HPI and below Exam Const: General: cooperative, comfortable and no acute distress Resp: Auscultation: clear to auscultation bilaterally Cardio: Rate: regular rate Rhythm: regular rhythm GI: Inspection: normal to inspection and non-distended GI Palp: No abdominal tenderness, Yes Soft to palpation and No Tenderness to palpation present (GI) Other: ileostomy - normal fxn Objective Data Vital Signs Vital Signs: Vital Signs - 24 hr 05/22/23 14:00 05/22/23 20:00 05/22/23 21:46 Temperature 36.5 C 37.1 C Pulse Rate 107 H 107 H 92 Respiratory Rate 18 18 18 Blood Pressure 120/84 119/70 Pulse Oximetry 95 95 96 Oxygen Delivery Room Air 05/23/23 05:53 Temperature 37.1 C Pulse Rate 84 Respiratory Rate 18 Blood Pressure 113/76 Pulse Oximetry 93 Oxygen Delivery Intake/Output Intake/Output: Intake & Output 05/20/23 05/21/23 05/22/23 05/23/23 23:59 23:59 23:59 23:59 Intake Total 2150 2812 2030 Output Total 350 2050 Balance 8313 360 0344 Meds/Results Medications: Active Medications Generic Name Dose Route Start Last Admin Trade Name Nirmalq PRN Reason Stop Dose Admin Acetaminophen 650 mg 05/21/23 15:26 Acetaminophen 325 Mg Tablet PO Q4H PRN Mild Pain (1-3) or Fever Hydrocodone Bitart/Acetaminophen 1 tab 05/21/23 15:26 Hydrocodone/Acetaminophen (*Crx) 5-325 Mg Tablet PO Q4H PRN Moderate Pain (4-6) Calcium Carbonate 500 mg 05/22/23 09:00 Calcium/Vitamin D 500 Mg Tablet PO DAILY MIESHA Folic Acid 0.5 mg 05/22/23 09:00 Folic Acid 1 Mg Tablet PO DAILY MIESHA Ceftriaxone Sodium 1 gm in 50 mls @ 100 mls/hr 05/22/23 13:00 05/22/23 14:32 Rocephin 1 Gm/Ns 50 Ml IVPB Infused Q24H MIESHA Infusion Metronidazole 500 mg in 100 mls @ 100 mls/hr 05/21/23 22:00 05/23/23 05:15 Flagyl 500 Mg/Iso Soln 100 Ml IVPB 100 mls/hr Q8H MIESHA Administration Lactated Ringer's 1,000 mls @ 100 mls/hr 05/21/23 18:30 05/23/23 05:15 Lr - Lactated Ringers Iv IV CONT 100 mls/hr .Q10H MIESHA Administration Morphine Sulfate 2 mg 05/21/23 15:26 Morphine Sulfate (*Crx) 2 Mg/Ml Inj IV PUSH Q4H PRN Pain Rated 7-10 Multivitamins/Calcium 1 tablet 05/22/23 09:00 Therapeutic Multivitamins/Minerals Tab (*Bkc) PO DAILY MIESHA Ondansetron HCl 4 mg 05/21/23 15:26 Ondansetron Inj 4 Mg/2 Ml Vial IV PUSH Q6H PRN Nausea And Vomiting Pantoprazole Sodium 40 mg 05/22/23 09:00 05/23/23 09:56 Pantoprazole Sodium Iv 40 Mg Vial IV PUSH 40 mg QAM MIESHA Administration Radiology Results: ITS Impressions Abdomen/Pelvis CT 05/21/23 10:02 IMPRESSION: 1. Fluid-filled small bowel measuring up to 4.1 cm diameter with transition point at a right abdominal and ileostomy which could be due to ileus or early/partial small bowel obstruction. 2. Nonobstructing bilateral nephrolithiasis. 3. Small sliding-type hiatal hernia. Abdomen X-Ray 05/21/23 11:31 IMPRESSION: 1. Nasogastric tube in expected position in the stomach. Labs Labs: Laboratory Results - last 24 hr 05/23/23 06:32 WBC 11.1 H RBC 4.63 Hgb 14.9 Hct 43.3 MCV 93.5 MCH 32.2 MCHC 34.4 RDW 13.7 Plt Count 253 MPV 10.3 Immature Gran % (Auto) 0.3 Neut % (Auto) 70.6 Lymph % (Auto) 16.5 L [place] % (Auto) 9.4 H Eos % (Auto) 2.4 Baso % (Auto) 0.8 Lymph # (Auto) 1.83 [place] # (Auto) 1.0 H Eos # (Auto) 0.3 Baso # (Auto) 0.1 Abs Immat Gran (auto) 0.03 Absolute Neuts (auto
[2023-05-23 13:59] VITALS: BP 115/67; PULSE 99; RESP 18; TEMP 36.5; O2SAT 95
--- NOTE | 2023-05-23 14:13 | PC.NURSE ---
Patient refusing afternoon antibiotic treatment as he is awaiting discharge
--- NOTE | 2023-05-23 15:24 | PM.DS ---
DS: Admitting Diagnosis Discharge Date 05/23/2023 Admitting Diagnosis 1. Partial, SBO 2. Probable Sepsis DS: Discharge Diagnosis Discharge Diagnosis (1) Sepsis: Qualifiers: Sepsis type: sepsis due to unspecified organism Sepsis acute organ dysfunction status: unspecified Qualified Code(s): A41.9 - Sepsis, unspecified organism Code(s): A41.9 - Sepsis, unspecified organism Status: Acute Assessment and Plan: -Meets SIRS criteria: HR >90, WBC count >14 -Lactic Acid: 2.5 -> r2.2, repeat in AM -30 mL/kg = 2,500 - given 2L bolus with NS at 125 mL/hr -started on metronidazole and ceftriaxone -CT c/f partial SBO or early SBO - GenSurg to see. -blood cultures pending (2) Small bowel obstruction, partial: Code(s): K56.600 - Partial intestinal obstruction, unspecified as to cause Status: Acute Assessment and Plan: -CT abd/pelvis: 1. Fluid-filled small bowel measuring up to 4.1 cm diameter with transition point at a right abdominal and ileostomy which could be due to ileus or early/partial small bowel obstruction. 2. Nonobstructing bilateral nephrolithiasis. 3. Small sliding-type hiatal hernia. -NG placed, XR abd - nasogastric tube in expected position in the stomach. -NPO/bowel rest -accepted at [facility] by Renato KAUFMAN for colorectal surgery, no bed available. ED spoke with Kp KAUFMAN who is willing to see patient here. -given WBC of 16.6, subjective chills/fever, and lactic acid of 2.5 - patient started on ceftriaxone and metronidazole on 05/21. has PCN allergy. -GenSurg consulted, awaiting recs. -antiemetics PRN -pantoprazole 40 IVP QAM -continue IV hydration - NS 125 mL/hr -> LR 100 mL/hr. monitor for discontinuation daily. -hold home Imodium and Metamucil Per General surgery: resolving, exam benign, clamp NG and start clears, if no issues after a few hours ok to remove NG and ADAT (3) Presence of ileostomy: Code(s): Z93.2 - Ileostomy status Status: Acute Assessment and Plan: -follows with [facility] Colorectal Surgery - accepted at [facility], no bed availablity -monitor I&Os -see above Plan Home Meds/Chronic Conditions -OTC/ supplements: hold home multivitamin, folic acid, calcium/vitamin D3 Diet: NPO GI Prophylaxis: pantoprazole IVP DVT Prophylaxis: SCDs Lines: pIV Code Status: Full Code DS: Summary Hospital Course Reason for hospitalization: 1. Partial, SBO 2. Probable Sepsis Hospital Course: 58 y/o M presents here with decreased output from his ostomy with PMH of Crohn's, colon cancer s/p total colectomy, anemia, and R inguinal hernia repair. Patient reports decreased output from his colostomy starting yesterday evening. Patient had total colectomy/ostomy placed in August of 2021 secondary to colon cancer at [facility]. Takes Imodium once daily for to help with ostomy output (previously too thin/too much) and Metamucil fiber, last doses yesterday. Started having associated nausea without vomiting, subjective fever/chills, and GERD symptoms (burning in his throat) that began this morning. No abdominal pain. Currently experiencing moderate achiness to muscles of abdomen/lower back secondary to emesis and dry heaves. No recent illnesses or sick contacts. Initial VS at presentation:98.1 F, HR 91, RR 18, 137/74, 97% on RA. ED workup showed ? Leukocytosis with WBC of 16.6,? no anemia, chemistries unremarkable, glucose 152, lactic acid 2.5, viral PCR negative, and UA not indicative of UTI. CT abd/pelvis showed fluid-filled small bowel measuring up to 4.1 cm diameter with transition point at a right abdominal and ileostomy which could be due to ileus or early/partial small bowel obstruction. Nonobstructing bilateral nephrolithiasis. Small sliding-type hiatal hernia. NG then placed and confirmed with XR. Interventions: None Treatment: IVFs; NPO; Serial abdomen exams Discharge: 05/23/23 Status at Discharge Functional status at discharge: independent ambulation Time Spe
== END 2023-05-23 16:00 | disposition home or self-care (01) | DRG 247 ==
LOC: ANHED 14:24 → ANH3MEDSUR 14:52
PROVIDERS: Student in an Organized Health Care Education/Training Program; Admitting Provider Internal Medicine; Emergency Provider Emergency Medicine; PCP Family Medicine Adolescent Medicine; Visit Provider Internal Medicine
DX: K56.600 Partial intestinal obstruction, unspecified as to cause (principal); K50.90 Crohn's disease, unspecified, without complications; D50.9 Iron deficiency anemia, unspecified; N20.0 Calculus of kidney; K44.9 Diaphragmatic hernia without obstruction or gangrene; Z20.822 Contact with and (suspected) exposure to COVID-19; Z93.2 Ileostomy status; Z85.038 Personal history of other malignant neoplasm of large intestine
CPT/HCPCS: 36415; 74176; 80048; 80053; 81003; 83036; 83605; 83690; 85025; 87040; 87637; 96361; 96365; 96375; 99285; C9113; G0378; G0379; J0696; J1836; J7030; J7120

== ENCOUNTER 2024-01-23 13:05 | Outpatient (CLI) | payer OTHER, SELFPAY ==
--- NOTE | ~2024-01-23 | US_ITS ---
Limited ABDOMINAL ULTRASOUND Ordering provider: Jessica Lacy DO History: . R79.89 - Other specified abnormal findings of blood chemi... . Comparison: None. FINDINGS: LIVER: Normal size and echotexture. No focal hepatic lesions or perihepatic fluid collections are mariela ntified. Portal vein flow is normal. GALLBLADDER: Cholelithiasis. Largest gallstone measures 2.3 x 1 x 1 cm. No evidence for sludge, gallb ladder wall thickening or pericholecystic fluid collections. Wall thickness is 1.2 mm. A negative sonographic Trotter's sign was noted. BILIARY DUCTS: No evidence for intra or extrahepatic biliary dilation. Common bile duct measures 4.9 mm in diameter which is within normal limits. PANCREAS: Partially seen. Normal echotexture and size. UPPER ABDOMINAL AORTA: Normal in caliber. IVC: Patent. FREE FLUID: None. IMPRESSION: Cholelithiasis. No evidence of cholecystitis. Reviewed, dictated and finalized at location A.
== END 2024-01-23 13:06 | disposition home or self-care (01) ==
LOC: ANHIMG 13:05
PROVIDERS: PCP Family Medicine Adolescent Medicine; Visit Provider Family Medicine
DX: R79.89 Other specified abnormal findings of blood chemistry (principal); R74.8 Abnormal levels of other serum enzymes; K80.20 Calculus of gallbladder without cholecystitis without obstruction
CPT/HCPCS: 76705

== ENCOUNTER 2024-02-19 12:32 | Outpatient (CLI) | payer OTHER, SELFPAY ==
--- NOTE | ~2024-02-19 | MR_ITS ---
EXAMINATION: MR brain/brain stem wo/w con DATE: 02/19/2024 13:27 INDICATION: Headache, unspecified. TECHNIQUE: Magnetic resonance imaging (MRI) of the brain and brainstem was performed without and with 15 mL MultiHance intravenous contrast. COMPARISON: None. FINDINGS: There is no intracranial hemorrhage, acute infarction, or abnormal intracranial mass lesion . The ventricles are normal in size. There is mild mucosal thickening in the paranasal sinuses. The o rbits are normal. The mastoid air cells are normal. IMPRESSION: 1. Normal brain. Reviewed, dictated and finalized at location A. SUPERVISOR IMPRESSION: 1. Normal brain.
== END 2024-02-19 12:33 | disposition home or self-care (01) ==
PROVIDERS: PCP Family Medicine Adolescent Medicine; Visit Provider Family Medicine
DX: R51.9 Headache, unspecified (principal); R79.89 Other specified abnormal findings of blood chemistry
CPT/HCPCS: 70553; A9577

== ENCOUNTER 2025-04-01 22:42 | Emergency (ER) | payer OTHER, SELFPAY ==
--- NOTE | ~2025-04-01 | CT_ITS ---
EXAM/PROCEDURE: CT abdomen pelvis wo con HISTORY: concern for kidney stone COMPARISON: May [id number] TECHNIQUE: Noncontrast CT of the abdomen and pelvis FINDINGS: 9 x 7 x 6 mm distal right ureteral stone image Urinary bladder appears normal for technique. Nonobstructive bowel gas pattern with no free air free fluid or pneumatosis. Low-density mass in the dome of the liver, image 33 series 3 not significantly changed in appearance. 172 series 3 with mild right-sided hydroureteronephrosis. 5 mm and 2 mm upper pole right-sided kidney stones, and punctate lower pole right-sided kidney stone. On the left side, 2 mm nonobstructing lower pole left kidney stone. No obstructing left ureteral stone. No AAA or grossly inflamed appendix. Spleen pancreas stomach and adrenal glands appear stable. The bones appear stable as well. IMPRESSION: Directed noncontrast exam demonstrating a 9 mm distal right ureteral stone with mild right-sided hydroureteronephrosis. NOTE: Preliminary radiology report provided by [facility] radiologist/physician. Reviewed, dictated and finalized at location [facility]. [facility]
--- OUTSIDE RECORDS SUMMARY | 2025-04-01 22:45 | XMS_ITS | Encounter Summary ---
Author Organization [facility] Address [address] [facility] [address] [place] [address] Phone Care Team Providers Care General Sales Manager Name Role Phone Олег Temple MD Unavailable [phone] Eldon López MD Primary Care Prov ider Bruce Gross MD Unavailable [phone] Jaiden Davies MD Unavailable [phone] Encounter Details Date Type Department Care Team (Late st Contact Info) Description 03/09/2025 Results Follow-Up [facility] Medicine Surgery [address] [place] [address] Medical Office Building [address] [place] [address] Marion Mackey PA [address] [place] [phone] [place] [address] CEA Social History Tobacco Use Types Packs/Day Years Used Date Smoking Tobacco: Never Smokeless Tobacco: Never AUDIT-C Answer Date Recorded Q1: How often do you have a drink containing alcohol? Never 03/02/2024 Q2: How many drinks containi ng alcohol do you have on a typical day when you are drinking? Patient does not drink Q3: How often do you have si x or more drinks on one occasion? Never 03/02/2024 Sex and Gender Information Value Date Recorded Sex Assigned at Not on file Legal Sex Male 10:44 AM CDT Gender Identity Male 07/03/2023 12:12 PM CDT Sexual Orientation Straight 07/03/2023 12 :12 PM CDT documented as of this encounter Plan of Treatment Not on file documented as of this encounter Visit Diagnoses Not on filedocumented in this encounter Care Teams General Sales Manager Relationship Specialty Start Date End Date Eldon López MD [address] [facility] [address] [place] [address] PCP - General Family Medicine 04/28/21 Олег Temple MD [address] [address] Referring Physician Gastroenterology 03/28/21 Bruce Gross MD [address] [address] Surgeon Colon and Rectal Surgery 08/03/21 Jaiden Davies MD [address] [place] [address] Referring Physician Gastroenterology 08/04/21 documented as of this encounter
--- OUTSIDE RECORDS SUMMARY | 2025-04-01 22:45 | XMS_ITS ---
Author Organization [facility] Address [address] [place] [address] Care Team Providers Care Internal Medicine Physician Assistant Name Role Phone Олег Temple MD Unavailable [phone] Eldon López MD Primary Care Prov ider Bruce Gross MD Unavailable [phone] Jaiden Davies MD Unavailable [phone] Active Problems Problem Noted Date Diagnosed Date Pelvic fluid collection 10/05/2021 Crohn's disease with complication 08/03/2021 Overview (08/03/2021): Added automatically from request for surgery [id number] Malignant neoplasm of colon 08/03/2021 Overview (08/03/2021): Added automatically from request for surgery [id number] Sessile colonic polyp 06/01/2021 Overview (06/01/2021): Added automatically from request for surgery [id number] Crohn's disease of both smal l and large intestine without complication 05/31/2021 Overview (01/09/2022): Year of Diagnosis: 2005 Year Symptoms Began: 2005 Phenotype: Crohn's, stricturing Distribution: L2 vs L3 + B2 Previously Failed Treatments: 6-MP with fatigue and low appetite, discontinued AZA 11/28/21 Current Treatment: None Complications: Ascending colon stricture, descending colon large polyp Surgeries (Date, type): 09/01/21 Laparoscopic assisted total proctocolectomy with intersphincteric APR, resection of 40 cm of terminal ileum, end ileostomy PATH: Diagnosis: Terminal ileum, appendix, colon, rectum, and anus, proctocolectomy with intersphincteric anterior perineal resection and resection of 40 cm of terminal ileum: -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 - Perineural invasion, identified. - Negative for lymphovascular invasion. - The proximal ileal, distal anal, and mesenteric margins, negative for dysplasia and adenocarcinoma. - Fifty-five lymph nodes, negative for adenocarcinoma (0/55). - Pathologic stage (AJCC 8th edition): pT3 N0 (please see comment and synoptic). - The uninvolved colon with multifocal low and high-grade dysplasia arising in active chronic colitis.- - Terminal ileum with active chronic ileitis with cytologic atypia, favor reactive atypia. - Appendix with no significant abnormality. - Rectum with one tubulovillous adenoma and hyperplastic polyps. - Ileal surgical resection margin with no significant abnormality; negative for active inflammation or features of chronic mucosal injury. Endoscopies (Date, findings, path): Colon 06/2021 Preparation of the colon was fair and inadequate for surveillance or complex polypectomy. The patient is noted to have a tortuous colon requiring position changes and manual pressure to complete examination. - Four 20 to 50 mm polyps at 36 cm proximal to the anus, at 51 cm proximal to the anus, at 54 cm proximal to the anus and at 70 cm proximal to the anus. Biopsied. - Suspected Crohn's stricture in the transverse colon and at 73 cm proximal to the anus. This was easily traversable with the PCF scope. Biopsied. - Simple Endoscopic Score for Crohn's Disease: 18, mucosal inflammatory changes consistent with Crohn's disease. Biopsied as noted above. - Overall impression is active Crohn's ileocolitis with multifocal areas of polypoid lesions and a moderate transverse stricture. Diagnosis: A. Small intestine, terminal ileum, biopsy: - Chronic active ileitis (cryptitis, surface epithelium and lamina propria acute inflammation, architectural distortion) B. Large intestine, right colon, biopsy: - Chronic active colitis (cryptitis, crypt abscess, surface epithelium and lamina propria acute inflammation, basal plasmocytosis, and architectural distortion) C. Large intestine, right colon, biopsy: - Inactive colitis (architectural distortion) D. Large intestine, 36cm, biopsy: - Tubular adenoma vs. polypoid low grade colitis-associated dysplasia (see comment) E. Large intestine, 50cm, biopsy: - Hyperplastic polyp F. Large intestine, 54cm, biopsy: - Tubular adenoma vs. polypoid colitis-associated dysplasia, with high grade dysplasia (see comment) G. Large intestine, 70cm, biopsy: - Hyperplastic polyp H. Large intestine, 73cm, biopsy: -Invasive moderately-differentiated adenocarcinoma arising in tubular adenoma/polypoid colitis-associated dysplasia (see comment) 11/2020: Colonoscopy - (done with EC-760 P-V/M, V/L Colonoscope) with showing concern for ascending colon stricture that was not traversed, ascending colon polyp 1cm removed (inflammatory polyp on path), possible mild colitis from ascending to sigmoid at 40cm, a circumferential spanning 4-5cm LST like lesion, sessile, biopsied showing fragments of villous adenoma (read here by our path). Diagnosis: Consult material received from [place], [place] (OSC: [id number]; 12/13/2020). A. Large intestine, random right colon, biopsy - Diffuse chronic active colitis with ulceration - Epithelial changes, indefinite for dysplasia B. Large intestine, random left colon, biopsy - Diffuse chronic active colitis with ulceration - Epithelial changes, indefinite for dysplasia C. Large intestine, polypoid lesion at 40 cm, biopsy - Fragments of villous adenoma; see comment D. Large intestine, right colon polyp, polypectomy - Ulcerated inflammatory pseudopolyp - No evidence of dysplasia Comment: A, B. Few glands are lined by hyperchromatic and enlarged nuclei in area with significant inflammation. They are interpreted as indefinite for dysplasia. C. Differential diagnosis includes sporadic adenoma vs colitis-associated polypoid dysplasia. Endoscopic correlation is essential for the management. Imaging: CT with PO contrast only 11/2021 IMPRESSION: 1. Incompletely evaluated perineal collection, with interval improvement of the imaged portions of the collection and surrounding stranding when compared to the prior exam. 2. Stable postoperative changes of a colectomy, abdominoperineal resection, and right lower quadrant end ileostomy. No evidence of bowel obstruction or other complication. HBV immune status: Non immune Covid vaccine: no Assessment & Plan (04/03/2023 11:07 AM DAY TREATMENT CLINICIAN/ART THERAPIST): CD and h/o colon cancer doing well. Continue to watch expectantly. Will f/up in 6 mo. Assessment & Plan (11/01/2021 12:35 PM CDT): Patient with CD doing well currently. The question is whether he has had significant small bowel disease or not. If not stop the AZA after we have scanned him. We looked at the topography of the abd and perhaps he will do better with another type of appliance. Gave samples of same. Anemia 05/31/2021 Current Treatment and Therapy Plans No current plan information found. Past Treatment and Therapy Plans No past plan information found. Lifetime Dose Tracking * Chemical Lifetime Dose Automatic Entry Manual Entr y DLP 1,964 mGycm 1,964 mGycm 0 mGycm Resolved Problems Problem Noted Date Diagnosed Date Resolved Date Rectal pain 10/01/2021 10/05/2021
--- OUTSIDE RECORDS SUMMARY | 2025-04-01 22:45 | XMS_ITS | Clinical Summary ---
Author Organization [facility] Address [address] [place] [address] Care Team Providers Care Museum Archivist Name Role Phone Олег Temple MD Unavailable [phone] Eldon López MD Primary Care Prov ider Bruce Gross MD Unavailable [phone] Jaiden Davies MD Unavailable [phone] Allergies Active Allergy Reactions Criticality Noted Date Comments Iodinated Contrast Media Anaphylaxis High 06/02/2021 Mesalamine Other (See comments) Low 05/31/2021 Did not work for patient Penicillins Unknown 05/31/2021 Patient reports this is from childhood. Unsure of allergic reaction Medications calcium carbonate-vitam in D3 1,500 mg (600 mg elemental)-800 unit tablet,chewable Indications:Pre vention of Vitamin D Deficiency Take 1 Caplet by mouth daily after lunch Active multivitamin capsuleIndicati ons:Vitamin Deficiency Prevention Take 1 capsule by mouth daily before lunch Active psyllium, aspartame, SF (METAMUCIL SF) 3.4 gram packet Take 1 packet by mouth 2 (two) times a day as needed (High/liquid ostomy output (> 1200 mL/24 hours)) Take over the counter metamucil twice daily as needed for high/liquid ostomy output (> 1200 mL/24 hours). Discuss this medication with Dr. Gross at your follow up appointment. 05/24/202 2 Active loperamide (IMODIUM) 2 mg capsuleIndicati ons:Ileostomy in place (HCC) Take 1 capsule (2 mg total) by mouth 2 (two) times a day as needed for diarrhea 60 capsule 11 5 Active Active Problems Problem Noted Date Diagnosed Date Pelvic fluid collection 10/05/2021 Crohn's disease with complication 08/03/2021 Overview (08/03/2021): Added automatically from request for surgery [id number] Malignant neoplasm of colon 08/03/2021 Overview (08/03/2021): Added automatically from request for surgery [id number] Sessile colonic polyp 06/01/2021 Overview (06/01/2021): Added automatically from request for surgery [id number] Crohn's disease of both smal l and [...] our path). Diagnosis: Consult material received from [place], [place] (OSC: [id number]; 12/13/2020). A. Large intestine, random right colon, [...] no Assessment & Plan (04/03/2023 11:07 AM FLUE TILE PRESS OPERATOR): CD and h/o colon cancer doing well. [...] appliance. Gave samples of same. Anemia 05/31/2021 Resolved Problems Problem Noted Date Diagnosed Date Resolved Date Rectal pain 10/01/2021 10/05/2021 Encounters Date Type Department Care Team Description 03/10/2025 11:40 AM FLUE TILE PRESS OPERATOR [facility] [address] [facility] Medical Office Building [address] [place] [address] Jaiden Davies MD Crohn's disease of both small and large intestine without complication (HCC) (Primary Dx) 03/09/2025 Results Follow-Up [facility] [address] [place] [address] [address] [place] [address] Marion Mackey PA CEA 03/08/2025 1:30 PM FLUE TILE PRESS OPERATOR Lab [facility] [address] [place] [address] History of colon cancer 03/08/2025 1:15 PM FLUE TILE PRESS OPERATOR Office [facility] Office Building [address] [place] [address] Marion Mackey PA History of colon cancer (Primary Dx); Crohn's disease with complication, unspecified gastrointestinal tract location (HCC) from Last 3 Months Surgical History Surgery Date Site/Laterality Comments INGUINAL HERNIA REPAIR 04/15/2012 - 04/14/2013 COLONOSCOPY TONSILLECTOMY COLON SURGERY 09/01/2021 Laparoscopic assisted total proctocolectomy with intersphincteric APR, resection of 40 cm of terminal ileum, end ileostomy Medical History Medical History Date Comments Crohn disease (HCC) Anemia Colon cancer (HCC) Family History Medical History Relation Name Comments Colon cancer Father Hearing loss Mother Hyperlipidemia Mother Hypertension Mother Macular degeneration Mother Osteoarthritis Mother Colon cancer Paternal Grandfather Anesthesia problems Neg Hx Relation Name Status Comments Father Mother Alive Paternal Grandfather Social History Tobacco Use Types Packs/Day Years Used Date Smoking Tobacco: Never Smokeless Tobacco: Never Tobacco Cessation:Counseling Given: Not Answered AUDIT-C Answer Date Recorded Q1: How often [...] Orientation Straight 07/03/2023 12 :12 PM CDT Last Filed Vital Signs Vital Sign Reading Time Taken Comments Blood Pressure 134/66 03/10/2025 11:24 AM FLUE TILE PRESS OPERATOR Pulse 89 03/10/2025 11:24 AM FLUE TILE PRESS OPERATOR Temperature 36.8 C (98.2 F) 03/10/2025 11:24 AM FLUE TILE PRESS OPERATOR Respiratory Rate 18 10/05/2021 4:02 PM CDT Oxygen Saturation 96% 03/10/2025 11:24 AM FLUE TILE PRESS OPERATOR Inhaled Oxygen Concentration - - Weight 80.7 kg (178 lb) 03/10/2025 11:24 AM FLUE TILE PRESS OPERATOR Height 185.4 cm (6' 1) 03/10/2025 11:24 AM FLUE TILE PRESS OPERATOR Body Mass Index 23.48 03/10/2025 11:24 AM FLUE TILE PRESS OPERATOR Plan of Treatment Health Maintenance Due Date Last Done Comments Depression Screening 1965 Hepatitis C Screening 1965 Prostate Cancer Screening-PSA 1965 Regular Well Visit/Exam 18-64 1982 Zoster Vaccine (1 of 2) 2014 Influenza Vaccine (#1) 2024 Colon Cancer Screening-Colonoscopy 07/05/20312021 DTaP/Tdap/Td Vaccine (2 - Td or Tdap) 05/04/2034 05/04/2024 Hepatitis B Screening Completed 05/31/2021 Pneumococcal vaccine <65 Aged Out No longer eligible based on patient's age to complete this topic Procedures Procedure Name Priority Date/Time Associated Diagnosis Comments CEA Routine 03/08/2025 1:47 PM FLUE TILE PRESS OPERATOR History of colon cancer COLONOSCOPY 07/04/2021 1:47 PM CDT from Last 3 Months or Most Recently Relevant to Health Maintenance Results * CEA (03/08/2025 1:47 PM FLUE TILE PRESS OPERATOR) CEA <0.6 <=5.0 ng/mL Comment: Interpretive Data Reference Range: Non-Smokers: < or = 3.0 ng/mL Some Smokers may have elevated levels, usually < 5.0 ng/mL The Yolanda CEA assay procedure was used. Results from different manufacturers or methods may not be comparable. Serial testing should be performed using the same method. Testing performed by: [facility], [address] [facility], [place]., [address] Blood 03/08/2025 1:47 PM FLUE TILE PRESS OPERATOR 03/08/2025 5:41 PM FLUE TILE PRESS OPERATOR us Marion ALMANZA LAB BLOOD ORDERABLES Final Result Performing Organization Address City/State/RUST Co de Phone Number [facility] [address] [facility]. [place] [address] * COLONOSCOPY (07/04/2021 1:47 PM CDT) Anatomical Region Laterality Modality Other Narrative Procedure Note Esteban Badillo MD - 07/04/2021 1:47 PM CDT GI ENDOSCOPY [facility] Patient Name: Renaldo Leyva Procedure Date: 07/04/2021 1:47 PM Date of : 1965 Admit Type: Outpatient Age: 56 Gender: Male Attending MD: Esteban Gallegos M.D. Room: [facility] ENDOSCOPY ROOM 1 Note Status: Finalized Procedure: Colonoscopy Indications: Excision of colonic polyp, Balloon dilation of stenotic lesion of the colon Referring MD: Jaiden Davies M.D. Providers: Esteban Gallegos M.D. Medicines: Monitored Anesthesia Care Complications: No immediate complications. Estimated Blood Loss: Estimated blood loss was minimal. Procedure: Pre-Anesthesia Assessment: - The risks and benefits of the procedure and the sedation options and risks were discussed with the patient. All questions were answered and informed consent was obtained. - Immediately prior to administration ofmedications, the patient was re-assessed for adequacy to receive sedatives. The benefits, risks and alternatives of theprocedure and sedation were discussed and informed consentwas obtained. All questions were answered. Please referto the signed informed consent document in the medical record. The scope was passed under direct vision.The GIF [id number] endoscope was introducedthrough the anus and advanced to the cecum, identified by appendiceal orifice and ileocecal valve. The scopewas passed under direct vision. The PCF [id number] endoscope was introduced through the anus andadvanced to the terminal ileum. The colonoscopy wasperformed without difficulty. The patient tolerated the procedure well. The quality of the bowelpreparation was fair. The quality of the bowel preparation was evaluated using the BBPS ([place] Bowel Preparation Scale) with scores of: Right Colon = 1 (portion of mucosa seen, but other areas not well seen due to staining, residual stool and/or opaque liquid), Transverse Colon = 2 (minor amount of residual staining, small fragments of stool and/or opaque liquid, but mucosa seen well) and Left Colon = 2 (minor amount of residual staining, small fragmentsof stool and/or opaque liquid, but mucosa seen well).The total BBPS score equals 5. The bowel preparationused was polyethylene glycol (PEG). Findings: The perianal and digital rectal examinations were normal. Four Jessica classification Is (protruding, sessile) polyps were foundat 36 cm proximal to the anus, at 51 cm proximal to the anus, at 54 cm proximal to the anus and at 70 cm proximal to the anus. The polypswere 20 to 50 mm in size. Biopsies were taken with a cold forceps for histology. Polypectomy was not attempted due to poor colonpreparation and presence of suspected multifocal dysplasia. A benign-appearing, intrinsic moderate stenosis measuring 1 cm (in length) x 1.5 cm (inner diameter) was found in the transverse colonand at 73 cm proximal to the anus and was traversed. Biopsies were taken with a cold forceps for histology. The Simple Endoscopic Score for Crohn's Disease was determined basedon the endoscopic appearance of the mucosa in the following segments: - Ileum: Findings include large ulcers 0.5-2 cm in size, 10-30% ulcerated surfaces, greater than 75% of surfaces affected and no narrowings. Segment score: 7. - Right Colon: Findings include large ulcers 0.5 - 2 cm in size,10-30% ulcerated surfaces, greater than 75% of surfaces affected and no narrowings. Segment score: 7. - Transverse Colon: Findings include no ulcers present, no ulcerated surfaces, 50-75% of surfaces affected and a single narrowing that canbe passed. Segment score: 3. - Left Colon: Findings include no ulcers present, no ulceratedsurfaces, less than 50% of surfaces affected and no narrowings. Segment score:1. - Rectum: Findings include no ulcers present, no ulcerated surfaces,no affected surfaces and no narrowings. Segment score: 0. - Total SES-CD aggregate score: 18. Biopsies were taken with a cold forceps for histology from the ileum, right, and left colon. Impression: - Preparation of the colon was fair and inadequatefor surveillance or complex polypectomy. The patient is noted to have a tortuous colon requiring position changes and manual pressure to completeexamination. - Four 20 to 50 mm polyps at 36 cm proximal to the anus, at 51 cm proximal to the anus, at 54 cmproximal to the anus and at 70 cm proximal to the anus. Biopsied. - Suspected Crohn's stricture in the transversecolon and at 73 cm proximal to the anus. This was easily traversable with the PCF scope. Biopsied. - Simple Endoscopic Score for Crohn's Disease: 18, mucosal inflammatory changes consistent withCrohn's disease. Biopsied as noted above. - Overall impression is active Crohn's ileocolitis with multifocal areas of polypoid lesions and a moderate transverse stricture. Recommendation: - Await pathology results from tissue sampling. Ifyou do not receive a call from my office after 5business days following today's procedure, please call my office at [phone] and speak to my nurse. - Return to referring provider as indicated to continued Crohn's medical therapy and consideration for surgical management. - In the unusual situation that you developabdominal pain, bleeding or other significant problems in the days following this procedure please call my office [phone]). After hours and eveningsplease call [phone] and speak to the GI fellow svetlana. Please tell the fellow that Dr. Gallegos did your procedure and that you were instructed to have the fellow call me or the physician covering for me to discuss the management of your condition. If youhave an urgent problem, please go to the nearestemergency room and have the ER doctor call my office duringthe day or the GI fellow after hours and weekends to arrange admission or transfer to our facility.Please bring this report with you if you go to theemergency room. Attending Participation: I personally performed the entire procedure. Electronically signed by Esteban Gallegos MD Esteban Gallegos M.D. 07/04/2021 3:06:59 PM . Number of Addenda: 0 Note Initiated On: 07/04/2021 1:47 PM Recognized by the [place] [employer] for promoting quality in endoscopy Esteban Gallegos MD ENDOSCOPY PROCEDURES Final Result from Last 3 Months or Most Recently Relevant to Health Maintenance Insurance [facility] Advance Directives For more information, please contact: [phone] * Full Code (Latest Code Status on File) Date Activated Date Inactivated Comments 10/01/2021 6:22 PM 10/05/2021 10:50 PM * Full Code Date Activated Date Inactivated Comments 09/01/2021 6:13 PM 09/05/2021 6:28 PM * Full Code Date Activated Date Inactivated Comments 07/04/2021 11:41 AM 07/04/2021 7:58 PM Care Teams Museum Archivist Relationship Specialty Start Date End Date Eldon López MD [address] [place] [address] PCP - General Family Medicine 04/28/21 Олег Temple MD [address] [place] [address] Referring Physician Gastroenterology 03/28/21 Bruce Gross MD [address] [address] Surgeon Colon and Rectal Surgery 08/03/21 Jaiden Davies MD [address] [place] [address] Referring Physician Gastroenterology 08/04/21
[2025-04-01 22:47] VITALS: BP 133/87; PULSE 92; RESP 18; TEMP 36.6; O2SAT 96
--- NOTE | 2025-04-01 23:18 | ED.MALEGU ---
HPI - Male Genitourinary General Chief complaint: Urogenital-Male <Mary George APRN - Last Filed: 04/02/25 03:16> Stated complaint: kidney stone <Mary George APRN - Last Filed: 04/02/25 03:16> Time Seen by Provider: 04/01/25 22:56 <Mary George APRN - Last Filed: 04/02/25 03:16> History of Present Illness HPI Narrative: Patient is a 60-year-old male who presents to the ER with a right flank pain. He reports his symptoms started approximately 2 days ago. Patient reports he ?bought cranberry juice yesterday,and this helped relieved his urinary symptoms until this evening. Around 830 tonight patient reports he started experiencing right flank pain along with sweats/questionable fever. Patient reports he has never had a kidney stone in the past. He endorses a history of Crohn's disease, colon cancer and has a colostomy. Patient reports family medications he takes at this time is Imodium intermittently. He denies any chest pain, shortness of breath, abdominal pain or nausea/vomiting. <Mary George APRN - Last Filed: 04/02/25 03:16> Related Data Home medications: Home Medications ?Medication ?Instructions ?Recorded ?Confirmed ?Last Taken ?Type multivitamin with minerals-folic 1 tablet PO DAILY 12/05/20 05/04/24 12/12/20 History acid 0.4 mg tablet (Adult One Daily Multivitamin) calcium carbonate-vitamin D3 500 600 cap PO DAILY 05/10/21 05/04/24 Unknown History mg (1,250 mg)-50 unit capsule loperamide 2 mg capsule 2 mg PO BID PRN diarrhea 02/21/22 05/04/24 Unknown History psyllium husk (with sugar) 3 1 tsp PO BID 02/21/22 05/04/24 Unknown History gram/7 gram oral powder (Daily Fiber (psyllium-sucrose)) <Mary George APRN - Last Filed: 04/02/25 03:16> Allergies/Adverse reactions: Allergies Allergy/AdvReac Type Severity Reaction Status Date / Time Penicillins Allergy Mild Unknown Verified 04/01/25 22:43 iohexol (From contrast - CT, Allergy Anaphylaxis Verified 04/01/25 22:43 X-RAY) <Mary George APRN - Last Filed: 04/02/25 03:16> Review of Systems Review of Systems: All systems reviewed & are unremarkable except as noted in HPI and below <Mary George APRN - Last Filed: 04/02/25 03:16> PMFSH Past Medical History Medical History: Medical History Presence of ileostomy History of colon cancer (08/2021) Crohn's disease <Mary George APRN - Last Filed: 04/02/25 03:16> Surgical History Surgical History: Surgical History History of total colectomy (08/2021) History of inguinal hernia repair (2008) right <Mary George APRN - Last Filed: 04/02/25 03:16> Social History Social History: Social History Smoking status: Never smoker Alcohol intake: never Substance use type: does not use Lack of Transportation: No Lack of Food: Never True Current Housing: I Have Housing Concerned About Future Housing: No Difficulty Paying Gas/Electric Bills: No Difficulty Paying for Meds: No Currently Unemployed: No Education: Bachelor's Degree Difficulty w/ Childcare or Family Care: No Living arrangements: with family Spiritual care concerns: No <Mary George APRN - Last Filed: 04/02/25 03:16> Exam Narrative: GENERAL: Well appearing, well-nourished, non-toxic, in no acute distress. HEAD: Normocephalic, atraumatic. NECK: Supple. No adenopathy, no masses. RESPIRATORY: Airway patent, respirations nonlabored. Clear to auscultation bilaterally, no rales, rhonchi, wheezing. CARDIOVASCULAR: Regular rate and rhythm without murmurs, rubs, or gallops. Peripheral pulses 2+ and equal bilaterally. ABDOMINAL: Soft, nontender, nondistended, no hepatosplenomegaly. Normoactive BS. + ostomy in place MUSCULOSKELETAL: Moves all extremities. Strength/ROM intact without gross deformities. SKIN: Warm, dry, normal color. No rashes. NEURO: A&O X3. Speech clear. Cranial nerves II-XII intact. No ataxic movements. PSYCHIATRIC: Appropriate mood and affect. Normal interaction. <Mary George, JESUS ALBERTO - Last Filed: 04/02/25 03:16> Course Course Emergency Course: Patient care signed over by previous provider pending discharge after imaging. Patient has a distal ureteral calculus and potential remnant or fragment in the bladder. I discussed with the patient and he has absolutely no symptoms at this time and states that he has been pain-free for multiple hours and urinated multiple fragments of stone earlier today in the emergency department. He wishes to go home at this time. There is some minimal hydro but given that he is already symptom free and most likely passed the majority of the stone or issue he can safely go home with Urology follow-up. Given Flomax and Toradol if any residual symptoms. Given return precautions. <Daniel Guy MD - Last Filed: 04/02/25 05:43> Vital Signs Vital signs: Vital Signs Temperature 36.6 C 04/01/25 22:47 Pulse Rate 92 04/01/25 22:47 Respiratory Rate 18 04/01/25 22:47 Blood Pressure 133/87 04/01/25 22:47 Pulse Oximetry 96 04/01/25 22:47 Oxygen Delivery Room Air 04/01/25 22:47 Temperature 36.6 C 04/01/25 22:47 Pulse Rate 79 04/02/25 03:35 Respiratory Rate 19 04/02/25 03:35 Blood Pressure 123/72 04/02/25 03:35 Pulse Oximetry 97 04/02/25 03:35 Oxygen Delivery Room Air 04/01/25 22:47 <Mary George APRN - Last Filed: 04/02/25 03:16> Vital Signs Temperature 36.6 C 04/01/25 22:47 Pulse Rate 92 04/01/25 22:47 Respiratory Rate 18 04/01/25 22:47 Blood Pressure 133/87 04/01/25 22:47 Pulse Oximetry 96 04/01/25 22:47 Oxygen Delivery Room Air 04/01/25 22:47 Temperature 36.6 C 04/01/25 22:47 Pulse Rate 79 04/02/25 03:35 Respiratory Rate 19 04/02/25 03:35 Blood Pressure 123/72 04/02/25 03:35 Pulse Oximetry 97 04/02/25 03:35 Oxygen Delivery Room Air 04/01/25 22:47 <Daniel Guy MD - Last Filed: 04/02/25 05:43> [facility] Narrative Medical decision making narrative: Patient is a 60-year-old male who presents to the ER with a right flank pain. He reports his symptoms started approximately 2 days ago. Patient reports he ?bought cranberry juice yesterday,and this helped relieved his urinary symptoms until this evening. Around 830 tonight patient reports he started experiencing right flank pain along with sweats/questionable fever. Patient reports he has never had a kidney stone in the past. He endorses a history of Crohn's disease, colon cancer and has a colostomy. Patient reports family medications he takes at this time is Imodium intermittently. He denies any chest pain, shortness of breath, abdominal pain or nausea/vomiting. Labs Ordered: CBC, CMP, UA, lipase Imaging Ordered: CT abdomen pelvis without contrast Medications Ordered: 1 L normal saline IV bolus, pt declined pain medication administration Results: Patient's urinalysis indicates 2+ blood and 11-20 rbcs, but no UTI. Diagnosis: Kidney stone, hematuria Consults: urology, Dr. Dillon 0315- Care signed out to Dr. Guy pending CT scan results. <Mary George APRN - Last Filed: 04/02/25 03:16> Differential Diagnosis Differential Diagnosis: Urinary tract infection, pyelonephritis, hematuria, kidney stone, hydronephrosis <Mary George APRN - Last Filed: 04/02/25 03:16> Lab Data [facility] Lab Attestation statement: I personally reviewed the patient's lab results. <Mary George APRN - Last Filed: 04/02/25 03:16> Result diagrams: 04/01/25 23:19 04/01/25 23:19 <Mary George APRN - Last Filed: 04/02/25 03:16> Labs: Lab Results 04/01/25 Range/Units 23:19 WBC 7.9 (4.5-10.0) K/mm3 RBC 4.39 L (4.6-6.20) M/mm3 Hgb 14.2 (14.0-18.0) g/dL Hct 41.3 L (42.0-52.0) % MCV 94.1 (80-100) fl MCH 32.3 (26-34) pg MCHC 34.4 (32-36) g/dl RDW 13.8 (11.5-14.5) % Plt Count 246 (150-375) k/mm3 MPV 10.1 (7.4-10.4) fl Immature Gran % (Auto) 0.3 (0-0.5) % Neut % (Auto) 75.5 H (45.5-73.1) % Lymph % (Auto) 12.8 L (18.3-44.2) % [place] % (Auto) 7.4 (2.6-8.5) % Eos % (Auto) 2.9 (0-4.4) % Baso % (Auto) 1.1 (0.2-1.2) % Lymph # (Auto) 1.02 (0.9-3.2) K/mm3 [place] # (Auto) 0.6 (0.1-0.6) K/mm3 Eos # (Auto) 0.2 (0-0.3) K/mm3 Baso # (Auto) 0.1 (0.0-0.1) K/mm3 Abs Immat Gran (auto) 0.02 (0.00-0.031) K/mm3 Absolute Neuts (auto) 6.0 (1.3-6.7) K/mm3 Absolute Nucleated RBC 0.000 (0.0-0.012) K/mm3 Nucleated RBC % 0.0 (0.0-0.2) % Sodium 139 (137-145) mmol/L Potassium 4.0 (3.4-5.0) mmol/L Chloride 109 H (98-107) mmol/L Carbon Dioxide 27 (22-30) mmol/L Anion Gap 3 L (4-12) mmol/L BUN 20 (9-20) mg/dL Creatinine 0.83 (0.7-1.3) mg/dL Estim Creat Clear Calc 92 ml/min Estimated GFR > 60 (59 - ) Glucose 101 (65-110) mg/dL Calcium 9.4 (8.4-10.2) mg/dL Total Bilirubin 0.5 (0.2-1.3) mg/dL AST 28 (17-59) U/L ALT 23 (6-50) U/L Alkaline Phosphatase 72 (38-126) U/L Total Protein 6.7 (6.3-8.2) g/dL Albumin 3.8 (3.5-5.1) g/dL Lipase 66 (23-300) U/L Urine Color Yellow (Yellow) Urine Appearance Clear (Clear) Urine pH 5.5 (5.0-9.0) Ur Specific [place] 1.018 (1.001-1.035) Urine Protein Negative (Negative) mg/dL Urine Glucose (UA) Negative (Negative) mg/dL Urine Ketones Negative (Negative) mg/dL Ur Blood (Man) 2+ H (Negative) Urine Nitrate Negative (Negative) Urine Bilirubin Negative (Negative) Urine Urobilinogen 0.2 (<2.0) mg/dL Leukocyte Esterase Rfl Negative (Negative) KIKO/UL Urine RBC 11-20 H (0-2) /hpf Urine WBC 0-5 (0-3) /hpf Ur Squamous Epith Cells None seen (Few) /hpf Urine Bacteria None seen /hpf Urine Casts 0-2 <Mary George, HYDRO EXCAVATION OPERATOR - Last Filed: 04/02/25 03:16> Lab Results 04/01/25 Range/Units 23:19 WBC 7.9 (4.5-10.0) K/mm3 RBC 4.39 L (4.6-6.20) M/mm3 Hgb 14.2 (14.0-18.0) g/dL Hct 41.3 L (42.0-52.0) % MCV 94.1 (80-100) fl MCH 32.3 (26-34) pg MCHC 34.4 (32-36) g/dl RDW 13.8 (11.5-14.5) % Plt Count 246 (150-375) k/mm3 MPV 10.1 (7.4-10.4) fl Immature Gran % (Auto) 0.3 (0-0.5) % Neut % (Auto) 75.5 H (45.5-73.1) % Lymph % (Auto) 12.8 L (18.3-44.2) % [place] % (Auto) 7.4 (2.6-8.5) % Eos % (Auto) 2.9 (0-4.4) % Baso % (Auto) 1.1 (0.2-1.2) % Lymph # (Auto) 1.02 (0.9-3.2) K/mm3 [place] # (Auto) 0.6 (0.1-0.6) K/mm3 Eos # (Auto) 0.2 (0-0.3) K/mm3 Baso # (Auto) 0.1 (0.0-0.1) K/mm3 Abs Immat Gran (auto) 0.02 (0.00-0.031) K/mm3 Absolute Neuts (auto) 6.0 (1.3-6.7) K/mm3 Absolute Nucleated RBC 0.000 (0.0-0.012) K/mm3 Nucleated RBC % 0.0 (0.0-0.2) % Sodium 139 (137-145) mmol/L Potassium 4.0 (3.4-5.0) mmol/L Chloride 109 H (98-107) mmol/L Carbon Dioxide 27 (22-30) mmol/L Anion Gap 3 L (4-12) mmol/L BUN 20 (9-20) mg/dL Creatinine 0.83 (0.7-1.3) mg/dL Estim Creat Clear Calc 92 ml/min Estimated GFR > 60 (59 - ) Glucose 101 (65-110) mg/dL Calcium 9.4 (8.4-10.2) mg/dL Total Bilirubin 0.5 (0.2-1.3) mg/dL AST 28 (17-59) U/L ALT 23 (6-50) U/L Alkaline Phosphatase 72 (38-126) U/L Total Protein 6.7 (6.3-8.2) g/dL Albumin 3.8 (3.5-5.1) g/dL Lipase 66 (23-300) U/L Urine Color Yellow (Yellow) Urine Appearance Clear (Clear) Urine pH 5.5 (5.0-9.0) Ur Specific [place] 1.018 (1.001-1.035) Urine Protein Negative (Negative) mg/dL Urine Glucose (UA) Negative (Negative) mg/dL Urine Ketones Negative (Negative) mg/dL Ur Blood (Man) 2+ H (Negative) Urine Nitrate Negative (Negative) Urine Bilirubin Negative (Negative) Urine Urobilinogen 0.2 (<2.0) mg/dL Leukocyte Esterase Rfl Negative (Negative) KIKO/UL Urine RBC 11-20 H (0-2) /hpf Urine WBC 0-5 (0-3) /hpf Ur Squamous Epith Cells None seen (Few) /hpf Urine Bacteria None seen /hpf Urine Casts 0-2 <Daniel Guy MD - Last Filed: 04/02/25 05:43> Discharge Plan Discharge Clinical Impression: Hematuria, Kidney stone, Presence of ileostomy <Mary George APRN - Last Filed: 04/02/25 03:16> Patient Disposition: Home <Mary George APRN - Last Filed: 04/02/25 03:16> Condition: Stable <Mary George APRN - Last Filed: 04/02/25 03:16> Instructions: Antibiotic Form, Kidney Stones (ED), Flank Pain (ED) <Mary George APRN - Last Filed: 04/02/25 03:16> Additional Instructions: There is a 7 x 6 x 9 cm distal ureteral stone which sounds like it is already being passed or passed as your symptoms are completely resolved and he noticed fragments in the urine. If you have any recurrence of the pain or intractable nausea, vomiting, fever any other issues or emergencies please return to the ED otherwise take the prescribed medications and follow-up with Urology. <Mary George APRN - Last Filed: 04/02/25 03:16> Patient Language: Mozambican <Mary George APRN - Last Filed: 04/02/25 03:16> Prescriptions: New tamsulosin 0.4 mg capsule 0.4 mg PO DAILY Qty: 30 0RF ketorolac 10 mg tablet 10 mg PO Q8H PRN (Reason: pain) 5 Days Qty: 20 0RF Rx Instructions: maximum total duration of 5 days from all oral, intranasal, or parenteral formulations No Action loperamide 2 mg capsule 2 mg PO BID PRN (Reason: diarrhea) Daily Fiber (psyllium-sucrose) 3 gram/7 gram powder 1 tsp PO BID multivit with min-folic acid [Adult One Daily Multivitamin] 0.4 mg Tablet 1 tablet PO DAILY calcium carbonate-vitamin D3 500 mg(1,250mg) -50 unit capsule 600 cap PO DAILY <Mary George APRN - Last Filed: 04/02/25 03:16> Follow-up/Referrals: Ant Dillon MD [Physician, Urology] Eldon López MD [Physician, Family Practice] <Mary George APRN - Last Filed: 04/02/25 03:16> Time of Disposition: 05:42 <Mary George APRN - Last Filed: 04/02/25 03:16> 05:42 <Daniel Guy MD - Last Filed: 04/02/25 05:43>
[2025-04-01 23:25] LABS: Hematocrit 41.3 % (42.0-52.0); Hemoglobin 14.2 g/dL (14.0-18.0); Immature Granulocyte Percent A 0.3 % (0-0.5); Lymphocytes Absolute Auto 1.02 K/mm3 (0.9-3.2); Mean Corpuscular HGB Conc 34.4 g/dl (32-36); Mean Corpuscular Hemoglobin 32.3 pg (26-34); Mean Corpuscular Volume 94.1 fl (80-100); Nucleated Red Blood Cells Absolute Auto 0.000 K/mm3 (0.0-0.012); Nucleated Red Blood Cells Perc 0.0 % (0.0-0.2); Platelet Count Result 246 k/mm3 (150-375); Red Blood Count 4.39 M/mm3 (4.6-6.20); White Blood Count 7.9 K/mm3 (4.5-10.0)
[2025-04-01] MEDS: SODIUM CHLORIDE 0.9% IV 1,000 ML 999 ML IV CONT (23:31)
[2025-04-01 23:39] LABS: Alanine Aminotransferase 23 U/L (6-50); Albumin Level 3.8 g/dL (3.5-5.1); Alkaline Phosphatase 72 U/L (38-126); Anion Gap 3 mmol/L (4-12); Aspartate Amino Transferase 28 U/L (17-59); Bilirubin,Total 0.5 mg/dL (0.2-1.3); Blood Urea Nitrogen 20 mg/dL (9-20); Calcium 9.4 mg/dL (8.4-10.2); Carbon Dioxide 27 mmol/L (22-30); Chloride 109 mmol/L (98-107); Estimated CRCL calculation 92 ml/min; Estimated Glomerular Filt Rate > 60; Glucose 101 mg/dL (65-110); Lipase 66 U/L (23-300); Potassium 4.0 mmol/L (3.4-5.0); Sodium 139 mmol/L (137-145); Total Protein 6.7 g/dL (6.3-8.2)
[2025-04-01 23:44] LABS: Add Urine Microscopic? YES; Appearance Urine Clear (Clear); Glucose Urine UA Negative (Negative); Leukocyte Esterase Ur Negative LEU/UL (Negative); Nitrate Urine Negative (Negative); Non Pathogenic Casts 0-2; Specific Grav Ur 1.018 (1.001-1.035)
[2025-04-02 00:58] VITALS: BP 126/78; PULSE 83; RESP 17; O2SAT 95
[2025-04-02 03:35] VITALS: BP 123/72; PULSE 79; RESP 19; O2SAT 97
[2025-04-02 05:50] VITALS: BP 129/71; PULSE 80; RESP 18; TEMP 36.6; O2SAT 99
[2025-04-02 05:51] VITALS: BP 129/71; PULSE 80; RESP 18; TEMP 36.6; O2SAT 99
== END 2025-04-02 05:54 | disposition home or self-care (01) ==
PROVIDERS: Student in an Organized Health Care Education/Training Program; Emergency Provider Registered Nurse; PCP Family Medicine
DX: N13.2 Hydronephrosis with renal and ureteral calculous obstruction (principal); R31.9 Hematuria, unspecified; Z93.2 Ileostomy status; K50.90 Crohn's disease, unspecified, without complications; Z85.038 Personal history of other malignant neoplasm of large intestine; Z90.49 Acquired absence of other specified parts of digestive tract
CPT/HCPCS: 36415; 74176; 80053; 81001; 83690; 85025; 96360; 99284; J7030